=== PATIENT | female | born 1960 | race Caucasian/White ===

== ENCOUNTER → 2017-09-11 | Outpatient (CLI) | payer BC ==
[2017-09-11 11:39] LABS: Potassium 4.5 mmol/L (3.5-5.1)
[2017-09-11 11:42] LABS: Basophils # (A) 0.1 k/uL (0-0.2); Basophils % (A) 1 %; Eosinophils # (A) 0.2 k/uL (0-0.7); Eosinophils % (A) 3 %; HCT 47.2 % (34.0-46.0); HGB 14.9 gm/dL (11.4-16.0); Lymphocytes # (A) 2.1 k/uL (1.0-4.8); Lymphocytes % (A) 30 %; MCH 30.3 pg (25.0-35.0); MCHC 31.6 g/dL (31.0-37.0); MCV 95.9 fL (80.0-100.0); Mean Platelet Volume 8.3; Monocytes # (A) 0.5 k/uL (0-1.0); Monocytes % (A) 6 %; Neutrophils # (A) 4.2 k/uL (1.3-7.7); Neutrophils % (A) 59 %; Platelet Count 236 k/uL (150-450); RBC 4.92 m/uL (3.80-5.40); RDW 13.1 % (11.5-15.5); WBC 7.2 k/uL (3.8-10.6)
--- NOTE | 2017-09-11 12:00 | XR ---
EXAMINATION TYPE: XR chest 2V DATE OF EXAM: 09/11/2017 COMPARISON: NONE TECHNIQUE: PA and lateral views submitted. HISTORY: Cough FINDINGS: The lungs are clear and there is no pneumothorax, pleural effusion, or focal pneumonia. Postsurgical change left shoulder. Arthropathy of the AC joints. Surgical clips in the abdomen noted. IMPRESSION: 1. No acute process.
== END | disposition home or self-care (01) ==
LOC: LABPAT 10:40
PROVIDERS: ATTEND Orthopaedic Surgery
DX: R05 Cough (principal); M75.41 Impingement syndrome of right shoulder; Z01.812 Encounter for preprocedural laboratory examination; Z01.818 Encounter for other preprocedural examination
CPT/HCPCS: 71046; 80051; 85025; 93005

== ENCOUNTER 2017-09-29 06:23 | Day surgery (SDC) | payer BC ==
[2017-09-27 12:00] VITALS: BMI 36.0
--- NOTE | 2017-09-28 09:24 | HP ---
HISTORY AND PHYSICAL CHIEF COMPLAINT: Right shoulder pain. 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 She is having a difficult time with any attempted overhead use and significant night symptoms. She has tried medications and stretching with minimal relief. She notes she is quite limited because of this. PAST MEDICAL HISTORY: Negative. PAST SURGICAL HISTORY: Significant for left carpal tunnel surgery, cholecystectomy, previous eye surgery, bilateral knee surgery in addition to left shoulder surgery. CURRENT MEDICATIONS: Ibuprofen and tramadol. FAMILY HISTORY: Negative. SOCIAL HISTORY: Significant for tobacco use. REVIEW OF SYSTEMS: Sixteen-point review of systems otherwise reviewed and is noncontributory. PHYSICAL EXAMINATION: On examination, the patient is approximately 5 feet 7 inches, 230 pounds of endomorphic habitus. HEENT exam is nonfocal. Neck is supple. On examination of the right shoulder, she is tender about the anterior subacromial space. She has moderate subacromial crepitus. Active range of motion forward elevation 150 degrees, external rotation with arm to side 55 degrees, internal rotation to L3. Motor strength is 5 minus over 5 for abduction and external rotation. Impingement test, Neer test and Speed tests are positive. Her distal neurovascular exam appears to be intact in the right upper extremity. MRI report right shoulder 09/04/2017 shows a bicipital tendinosis in addition to possible supraspinatus partial-thickness tear. IMPRESSION: 1. Right shoulder impingement with possible partial-thickness rotator cuff tear. 2. Right shoulder bicipital tendinosis. RECOMMENDATIONS: I talked to the patient at length regarding her treatment options. At this point, she is quite symptomatic and opts to proceed with surgery. We will plan to proceed with arthroscopic evaluation with probable subacromial decompression, rotator cuff debridement versus repair and possible biceps debridement. Risks and benefits were discussed at length in layman's terms. We will likely perform that as an outpatient procedure. MMODL / IJN: [id number] /
[~2017-09-29 06:23] MED LIST: DEXAMETHASONE SOD PHOSPHATE 10 MG/ML 1 ML VIAL IV ONE; LACTATED RINGERS 1,000 ML IV SCH; LIDOCAINE 1% 20 ML VIAL (10MG/ML) FOR IV START INTRADERMA PRN; ONDANSETRON 4 MG/2 ML VIAL IVP ONE; SCOPOLAMINE 1.5MG/72HR PATCH TRANSDERM ONE; ceFAZolin IN SWFI 2 GM/20 ML SYRINGE IVP ONE; fentaNYL (PF) 50 MCG/ML 2 ML AMP IV PRN
[2017-09-29] MEDS ORDERED: FAMOTIDINE 20 MG/2 ML VIAL IVP ONE (07:18)
[2017-09-29] MEDS ORDERED: fentaNYL (PF) 50 MCG/ML 2 ML AMP IVP ONE (07:30)
[2017-09-29] MEDS ORDERED: ROPIVACAINE 5 MG/ML 30 ML VIAL MISCELLANE ONE (07:30)
[2017-09-29] MEDS ORDERED: LIDOCAINE 2%-EPI 1:200,000 20 ML VIAL SQ ONE (07:30)
[2017-09-29] MEDS ORDERED: MIDAZOLAM 2 MG/2 ML VIAL IVP ONE (07:30)
[2017-09-29] MEDS ORDERED: MIDAZOLAM 2 MG/2 ML VIAL ONE (07:59)
[2017-09-29] MEDS ORDERED: LIDOCAINE 1% INJ 10MG/ML (20 ML MDV) ONE (07:59)
[2017-09-29] MEDS ORDERED: ROPIVACAINE 5 MG/ML 30 ML VIAL ONE (07:59)
[2017-09-29] MEDS ORDERED: PROPOFOL 10 MG/ML 20 ML VIAL IV ONE (07:59)
[2017-09-29] MEDS ORDERED: SUCCINYLCHOLINE CHLORIDE 100 MG/5 ML SYR IV ONE (07:59)
[2017-09-29] MEDS ORDERED: LIDOCAINE 2%-EPI 1:100,000 20 ML VIAL ONE (07:59)
[2017-09-29] MEDS ORDERED: PHENYLEPHRINE-0.9% NACL SYG 1 MG/10 ML SYRINGE ONE (07:59)
[2017-09-29] MEDS ORDERED: fentaNYL (PF) 50 MCG/ML 2 ML AMP ONE (07:59)
[2017-09-29] MEDS ORDERED: EPINEPHrine (PF) 1 ML in SODIUM CHLORIDE 0.9% IRRIGATIO 3,000 ML IRRIGATION ONE ×6 (08:34→08:36)
[2017-09-29] MEDS ORDERED: LACTATED RINGERS 1,000 ML IV ONE ×2 (09:07→10:05)
[2017-09-29 09:32] VITALS: TEMP 97
--- NOTE | 2017-09-29 09:36 | P.OP ---
Date of Procedure: 09/29/17 Preoperative Diagnosis: Right shoulder impingement/rotator cuff tear/bicipital tendinosis Postoperative Diagnosis: 1 cm rotator cuff tear/partial thickness tear intra-articular portion long head of the biceps Procedure(s) Performed: Right shoulder arthroscopic subacromial decompression/rotator cuff repair/ biceps debridement Implants: Arthrex 5.5 mm swivel lock anchor x 1, 4.75 mm swivel lock anchor 1 Anesthesia: ANALYA, regional Surgeon: Dann De La Torre Estimated Blood Loss (ml): 10 Pathology: none sent Condition: stable Disposition: PACU Indications for Procedure: The patient's a 56-year-old female who presents with progressive right shoulder pain despite conservative measures. Clinically and by MRI she was noted evidence of a small rotator cuff tear and subacromial impingement. A discussion of the risks and benefits of continued conservative measures versus operative intervention was made with patient. She opted to proceed with surgery. Operative risks to include infection, neurovascular injury, development of blood clots, possible tendon rerupture, and possible need for subsequent procedures was discussed. Informed consent was obtained. Operative Findings: As below Description of Procedure: The patient was brought to the operating room, and after induction of general anesthesia was placed in a beachchair position. The bony prominences were appropriately padded. I examined the right shoulder. There was no gross block to passive motion. There was no gross glenohumeral instability. The right upper extremity was prepped and draped in a normal fashion. The bony outlines the acromion, distal clavicle, and coracoid process were outlined with a skin marker. The glenohumeral joint was inflated 50 mL of saline utilizing a spinal needle from posterior approach. A posterior portal was made through a 5 mm skin incision 1 cm medial and inferior to the posterior lateral border acromion. A blunt trocar was used to easily into the joint. Diagnostic arthroscopy was performed. An anterior portals made just lateral to the coracoid process entering the joint above the subscapularis tendon. The anterior labrum appeared to be intact. The subscapularis was intact. There was a partial thickness tear involving the intra-articular portion of the long head of the biceps was debrided back to stable base with a motorized shaver. The superior labrum appeared to be intact. No significant chondral injury was noted involving the humeral head and glenoid. The rotator cuff was inspected and a full-thickness tear involving the anterior aspect the supraspinatus was noted. The posterior portion the cuff appeared to be intact. The posterior labrum was intact. The inferior recess was inspected. The arthroscope was then placed into the subacromial space. A lateral portal was made through a 5 mm skin incision 2 cm inferior to the anterolateral border the acromion. The soft tissue on the undersurface of the acromion was debrided with a motorized shaver and with electrocautery clearly defining the anterior medial and lateral borders as well as the distal clavicle. An anterior inferior acromioplasty is performed with a motorized merced starting anterolateral, then extending this posteriorly, then extending this medially. I was able to convert to a flat acromion. This was verified from the posterior and lateral viewing portals. The coracoacromial ligament was detached from the anterior acromion with electrocautery. Attention was then paid towards preparing the rotator cuff. The rotator cuff tear was identified and the edges debrided back to stable base. This measured proximal 1 cm involving the anterior aspect the supraspinatus. This is easily mobilized back to the greater tuberosity. The greater tuberosity was lightly decorticated with a motorized merced down to a bleeding bony surface. An accessory superior lateral portal was made through a 4 mm skin incision just off the lateral edge of the acromion. A 4.75 mm swivel lock anchor was then placed just off the articular surface with the appropriate starting awl. Good purchase was obtained. The #2 fiber tape preloaded was then passed to the rotator cuff with a scorpion suture passer. A lateral anchor was then placed with the appropriate starting awl. This was a 5.5 mm swivel lock anchor. The sutures were appropriately tensioned. Final arthroscopic view showed adequate compression of the footprint and repair of the rotator cuff. The arthroscope was then removed. The portals were closed with simple 3-0 nylon suture. A sterile dressing was applied in addition to an abductor brace. The patient was awoken from general anesthesia and transferred to recovery room in good condition. Blood loss was estimated at 10 mL. No complications were incurred. Sponge and needle counts were correct in the case.
[2017-09-29 10:09] VITALS: RESP 18
[2017-09-29 10:41] VITALS: BP 135/70; PULSE 87
== END 2017-09-29 11:04 | disposition home or self-care (01) ==
LOC: OR 06:23
PROVIDERS: ATTEND Orthopaedic Surgery
DX: M75.101 Unspecified rotator cuff tear or rupture of right shoulder, not specified as traumatic (principal); S46.111A Strain of muscle, fascia and tendon of long head of biceps, right arm, initial encounter; X58.XXXA Exposure to other specified factors, initial encounter; M75.41 Impingement syndrome of right shoulder; E66.9 Obesity, unspecified; Z68.36 Body mass index [BMI] 36.0-36.9, adult; Z79.1 Long term (current) use of non-steroidal anti-inflammatories (NSAID); Z79.891 Long term (current) use of opiate analgesic
CPT/HCPCS: 64415; 29827; 29826; C1713 ×2; C1894; J2250; J1100; J2405; J0171; J2001; J3010; J2795; J2370; J0330; J2704; J0690

== ENCOUNTER 2018-03-19 18:01 | Emergency (ER) | payer BC ==
[2018-03-19 18:27] VITALS: RESP 16; TEMP 98
[2018-03-19] MEDS ORDERED: HYDROmorphone 0.5 MG/0.5 ML SYRINGE IVP STA (18:56)
[2018-03-19] MEDS ORDERED: DIPH,PERTUS(ACELL)TETVAC-LF 0.5 ML VIAL IM ONE (18:57)
[2018-03-19 19:03] VITALS: BP 117/56; PULSE 84
--- NOTE | 2018-03-19 19:15 | XR ---
EXAMINATION TYPE: XR foot complete RT DATE OF EXAM: 03/19/2018 COMPARISON: NONE HISTORY: Lawnmower injury. Pain. TECHNIQUE: 3 views FINDINGS: There is a comminuted fracture of the midshaft of the first metatarsal. There are fractures on the medial aspect of the IP joint of the big toe. Detail is limited by the bandages. There is a p lantar calcaneal spur. There is soft tissue calcification posterior to the calcaneus. There is 3 mm c hip fracture of the lateral aspect of the base of the proximal phalanx of the second toe. IMPRESSION: Multiple fractures. No foreign body seen at the fracture sites. Limited exam.
[2018-03-19] MEDS ORDERED: PIPERACILLIN-TAZOBACTAM 3.375 GM in DEXTROSE/WATER 1 50ML.BAG IVPB STA (19:22)
--- NOTE | 2018-03-19 19:36 | ED ---
Lower Extremity Injury HPI <BraydenShlomo - Last Filed: 03/19/18 20:18> - General Source: patient, RN notes reviewed Mode of arrival: EMS Limitations: no limitations <Sylvia Weinstein - Last Filed: 03/19/18 20:41> - General Chief Complaint: Extremity Injury, Lower Stated Complaint: foot laceration Time Seen by Provider: 03/19/18 18:57 - History of Present Illness Initial Comments: This is a 57-year-old female who presents to the emergency department with chief complaint of right foot laceration and injury. Patient reports that prior to arrival she was mowing her lawn. She states that she was backing up with her lawnmower and tripped over her neighbor's lawnmower that was sitting in their driveway. Patient states that when she tripped and fell backwards her lawnmower landed on top of her right foot. It cut through her shoe and lacerated the top of her foot and between her first and second toes. She states that she called for help but nobody hurt her. She states that she had her cell phone in her pocket so called her . EMS and fire fighters arrived and applied a dressing to patient's foot. Patient states she is not up- to-date with her tetanus vaccination. She reports normal sensation but is unable to move the great toe. Denies any allergies. Denies recent fevers or chills, chest pain or shortness of breath, abdominal pain, nausea or vomiting, dizziness or headache. (Sylvia Weinstein) - Related Data Previous Rx's Medication Instructions Recorded HYDROcodone/APAP 7.5-325MG [[place] 1 tab PO Q6HR PRN #40 09/29/17 7.5-325] Allergies Allergy/AdvReac Type Severity Reaction Status Date / Time No Known Allergies Allergy Verified 03/19/18 18:30 Review of Systems ROS Other: All systems not noted in ROS Statement are negative. <Shlomo Owen - Last Filed: 03/19/18 20:18> ROS Other: All systems not noted in ROS Statement are negative. <Sylvia Weinstein - Last Filed: 03/19/18 20:41> ROS Statement: Those systems with pertinent positive or pertinent negative responses have been documented in the HPI. Past Medical History Past Medical History: Eye Disorder Additional Past Medical History / Comment(s): glaucoma History of Any Multi-Drug Resistant Organisms: None Reported Past Surgical History: Cholecystectomy, Orthopedic Surgery, Tubal Ligation, Uterine Ablation Additional Past Surgical History / Comment(s): arthroscopic lt shoulder surgery , rt hand surgery x2 lt hand surgery x1, zandra carpal tunnel, arthroscopic rt knee x1, lt knee x2, laser surgery around eyes r/t glaucoma Past Anesthesia/Blood Transfusion Reactions: Family History of Problems w/ Anesthesia Additional Past Anesthesia/Blood Transfusion Reaction / Comment(s): PONV mother and brother Past Psychological History: No Psychological Hx Reported Smoking Status: Former smoker Past Alcohol Use History: Occasional Past Drug Use History: None Reported - Past Family History Mother Family Medical History: No Reported History <Sylvia Weinstein - Last Filed: 03/19/18 20:41> General Exam <Shlomo Owen - Last Filed: 03/19/18 20:18> Limitations: no limitations <Sylvia Weinstein - Last Filed: 03/19/18 20:41> - General Exam Comments Initial Comments: General: Awake and alert, well-developed; in no apparent distress. Patient is pleasant, calm and cooperative. She is lying comfortably on the ED stretcher. HEENT: Head atraumatic, normocephalic. Pupils are equal, round and reactive to light. Extraocular movements intact. Oropharynx moist without erythema or exudate. Neck: Supple. Normal ROM. Cardiovascular: Regular rate and rhythm. No murmurs, rubs or gallops. Chest symmetrical. Respiratory: Lungs clear to auscultation bilaterally. No wheezes, rales or rhonchi. Normal respiratory effort with no use of accessory muscles. Musculoskeletal: Patient unable to move the right great toe. Sensation is intact. There is a large laceration extending approximately 13 cm from the webbing between the great toe and second digit down to the medial aspect of the foot. An open fracture is identified. There is also a 4.0 cm laceration at the dorsal aspect of the right great toe with extensor tendon exposed. Bleeding is controlled. No evidence of arterial bleed. Pedal and posterior tibial pulses are 2+ equal and palpable bilaterally. Skin: [place], warm and dry. Neurological: Alert and oriented x3. CN II-XII grossly intact. Speech is fluent and answers are appropriate. No focal neuro deficits. Psychiatric: Normal mood and affect. No overt signs of depression or anxiety noted. (Sylvia Weinstein) Course <BraydenShlomo - Last Filed: 03/19/18 20:18> <Sylvia Weinstein - Last Filed: 03/19/18 20:41> Vital Signs 03/19/18 03/19/18 18:24 19:02 Temperature 98 F Pulse Rate 78 84 Respiratory 16 16 Rate Blood Pressure 102/55 117/56 O2 Sat by Pulse 95 98 Oximetry - Reevaluation(s) Reevaluation #1: 03/19/18 20:18 PA supervision: I personally saw and examined the patient. I reviewed and agree with the PA findings including all diagnostic interpretations treatment plans is written unless otherwise stated. I did discuss the case with Dr. Galvan from orthopedics as well as with Dr. Carlitos Cross and Dr. Shlomo Nuno orthopedics at [facility]. They've agreed to set the patient transfer. Patient did receive IV antibiotics and tetanus shot. I did discuss this with the patient and family members. They are in agreement with this. (Shlomo Owen) Medical Decision Making <BraydenShlomo - Last Filed: 03/19/18 20:18> - Radiology Data Radiology results: report reviewed, image reviewed <Sylvia Weinstein - Last Filed: 03/19/18 20:41> - Medical Decision Making This is a 57-year-old female who presents to the emergency department with chief complaint of right foot laceration and injury. Patient sustained an extensive injury to the right foot after falling backwards and having the lawnmower land on her foot. Patient reports normal sensation. She is neurovascularly intact. She is unable to move the right great toe. There is an extensive laceration measuring approximately 13 cm in length from his the webbing between great toe and second digit down to the medial aspect of the foot. There is a second laceration at the dorsal aspect of the great toe measuring approximately 4 cm in length and extensor tendon is exposed. Open fracture of the first metatarsal is noted. Bleeding is controlled. Wet-to-dry dressing was placed. Patient given pain medication and started on Zosyn. An x- ray of the right foot revealed a comminuted fracture of the midshaft of the first metatarsal, fractures on the medial aspect of the IP joint of the big toe and a 3 mm chip fracture of the lateral aspect of the base of the proximal phalanx of the second toe. Patient's pain is controlled. Her vital signs are stable and she is in no acute distress. Patient will be transferred to [facility] for trauma ortho surgery. She is accepted by Dr. Nuno, orthopedic surgeon. This is an emergency department to emergency department transfer an accepting physician at [facility] emergency Department is Dr. Urbina. Patient is in agreement for transfer. Risks and benefits were discussed. (Sylvia Weinstein) - Radiology Data X-ray right foot findings: There is a comminuted fracture of the midshaft of the first metatarsal. There are fractures on the medial aspect of the IP joint of the big toe. Detail is limited by the bandages. There is a plantar calcaneal spur. There is soft tissue calcification posterior to the calcaneus. There is 3 mm chip fracture of the lateral aspect at the base of the proximal phalanx of the second toe. Impression: Multiple fractures. No foreign body seen at the fracture sites. Limited exam. As read by Dr. Frey. (Sylvia Weinstein) Disposition <Shlomo Owen - Last Filed: 03/19/18 20:18> Is patient prescribed a controlled substance at d/c from ED?: No - Out of Hospital Transfer - Req. Specs Out of Hospital Transfer - Requested Specifics: Other Emergency Center ([facility]. Accepting physician in the emergency department is Dr. Urbina. Orthopedic surgeon Dr. Nuno) <Sylvia Weinstein - Last Filed: 03/19/18 20:41> Clinical Impression: Open fracture of right foot Disposition: OTHER INSTITUTION NOT DEFINED Condition: Good Referrals: None,Stated [Primary Care Provider] - 1-2 days
== END 2018-03-19 20:25 | disposition other institution (70) ==
LOC: EC 18:01
DX: S92.311B Displaced fracture of first metatarsal bone, right foot, initial encounter for open fracture (principal); Z23 Encounter for immunization; Z87.891 Personal history of nicotine dependence; W01.0XXA Fall on same level from slipping, tripping and stumbling without subsequent striking against object, initial encounter; Y92.009 Unspecified place in unspecified non-institutional (private) residence as the place of occurrence of the external cause
CPT/HCPCS: 73630; 90715; 99285; 96365; 96375; 90471; J2543; J1170

== ENCOUNTER → 2019-09-26 | Outpatient (CLI) | payer BC ==
--- NOTE | 2019-09-26 16:32 | ECHOF ---
Referral Reason:R00.2 palpations MEASUREMENTS -------- HEIGHT: 166.4 cm WEIGHT: 104.3 kg BP: 143/80 IVSd: 1.2 cm (0.6 - 1.1) LVIDd: 4.4 cm (3.9 - 5.3) LVPWd: 1.2 cm (0.6 - 1.1) IVSs: 1.7 cm LVIDs: 2.3 cm LVPWs: 1.6 cm LA Diam: 3.6 cm (2.7 - 3.8) RVIDd: 3.0 cm (< 3.3) LAESV Index (A-L): 20.38 ml/m Ao Diam: 2.7 cm (2.0 - 3.7) AV Cusp: 1.9 cm (1.5 - 2.6) EPSS: 1.2 cm MV E Eleno: 0.69 m/s MV DecT: 294 ms MV A Eleno: 0.83 m/s MV E/A Ratio: 0.84 MV EF SLOPE: 63.02 mm/s (70 - 150) MV EXCURSION: 15.62 mm (> 18.000) FINDINGS -------- Sinus rhythm. This was a technically adequate study. The left ventricular size is normal. There is borderline concentric left ventricular hypertrophy. Overall left ventricular systolic function is normal with, an EF between 60 - 65 %. The right ventricle is normal in size. Normal LA size by volume 22+/-6 ml/m2. The right atrium is normal in size. Interatrial and interventricular septum intact. The aortic valve is trileaflet and appears structurally normal. The mitral valve is normal. The tricuspid valve appears structurally normal. There is no pulmonic regurgitation present. The aortic root size is normal. Normal inferior vena cava with normal inspiratory collapse consistent with estimated right atrial pre ssure of 5 mmHg. There is no pericardial effusion. CONCLUSIONS -------- 1. Sinus rhythm. 2. This was a technically adequate study. 3. The left ventricular size is normal. 4. There is borderline concentric left ventricular hypertrophy. 5. Overall left ventricular systolic function is normal with, an EF between 60 - 65 %. 6. The right ventricle is normal in size. 7. Normal LA size by volume 22+/-6 ml/m2. 8. The right atrium is normal in size. 9. Interatrial and interventricular septum intact. 10. The aortic valve is trileaflet and appears structurally normal. 11. The mitral valve is normal. 12. The tricuspid valve appears structurally normal. 13. There is no pulmonic regurgitation present. 14. The aortic root size is normal. 15. Normal inferior vena cava with normal inspiratory collapse consistent with estimated right atrial pressure of 5 mmHg. 16. There is no pericardial effusion. MOTOR COACH DRIVER: Radha Cuenca RDCS
== END | disposition home or self-care (01) ==
LOC: RADECHMAIN 12:04
PROVIDERS: ATTEND Family Medicine
DX: R00.2 Palpitations (principal); I51.7 Cardiomegaly
CPT/HCPCS: 93225; 93226; 93306

== ENCOUNTER → 2019-10-07 | Outpatient (CLI) | payer BC ==
[2019-10-07 09:49] LABS: Basophils % (A) 0 %; Eosinophils # (A) 0.2 k/uL (0-0.7); Eosinophils % (A) 3 %; HGB 14.5 gm/dL (11.4-16.0); Lymphocytes # (A) 2.4 k/uL (1.0-4.8); Lymphocytes % (A) 33 %; MCH 30.5 pg (25.0-35.0); MCHC 32.3 g/dL (31.0-37.0); MCV 94.5 fL (80.0-100.0); Mean Platelet Volume 8.4; Monocytes # (A) 0.3 k/uL (0-1.0); Monocytes % (A) 5 %; Neutrophils # (A) 4.2 k/uL (1.3-7.7); Neutrophils % (A) 58 %; Platelet Count 261 k/uL (150-450); RBC 4.76 m/uL (3.80-5.40); RDW 12.9 % (11.5-15.5); WBC 7.3 k/uL (3.8-10.6)
[2019-10-07 16:06] LABS: African American GFR (CKD) 81.7 (60.0-200.0); Albumin 4.1 g/dL (3.80-4.90); Albumin/Globulin Ratio 1.86 (1.60-3.17); Anion Gap 6.5 mmol/L (4.00-12.00); Calcium 8.9 mg/dL (8.7-10.3); Carbon Dioxide 22.5 mmol/L (21.6-31.8); Chol/HDL Ratio 2.86; Globulin 2.2 g/dL (1.6-3.3); LDL Cholesterol,Calculated 78.2 mg/dL (0.0-131.0); Non-African American GFR(CKD) 70.5 (60.0-200.0); Potassium 4.4 mmol/L (3.5-5.5); Total Bilirubin 0.3 mg/dL (0.3-1.2); Total Protein 6.3 g/dL (6.2-8.2); VLDL Calculation 25.8 mg/dL (5.00-40.00)
== END ==
LOC: LABWHC1 08:57
PROVIDERS: ATTEND Family Medicine
DX: Z00.00 Encounter for general adult medical examination without abnormal findings (principal); R00.2 Palpitations
CPT/HCPCS: 36415; 80053; 80061; 84443; 85025

== ENCOUNTER → 2022-10-24 | Outpatient (CLI) | payer OTHER ==
--- NOTE | 2022-10-25 06:25 | MR ---
EXAMINATION TYPE: MR knee RT wo con DATE OF EXAM: 10/24/2022 COMPARISON: Outside right knee x-ray October 11, 2022 HISTORY: RT KNEE PAIN and swelling for a few years. History of surgery and sports injury. TECHNIQUE: Multiplanar, multisequence images of the knee is performed without IV contrast. FINDINGS: Seen slightly suboptimal secondary to patient's large body habitus MEDIAL MENISCUS: Abnormal increased signal anterior and posterior horns has definitive extension to a n inferior articular surface posterior horn. LATERAL MENISCUS: Anterior and posterior horns are intact without tear. CRUCIATE LIGAMENTS: The posterior cruciate ligament is intact and unremarkable. Complete tear of the anterior cruciate ligament with horizontal remnant ligament. COLLATERAL LIGAMENTS: The medial collateral ligament and lateral collateral ligament complex are inta ct and unremarkable. EXTENSOR MECHANISM: Visualized quadriceps and patellar tendons are intact. EFFUSION: No significant suprapatellar joint effusion. POPLITEAL CYST: No popliteal/paniagua cyst. TRICOMPARTMENT SPACES: Severe narrowing and moderate to severe spurring medial tibiofemoral compartme nt and patellofemoral compartments. 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 No full- thickness loss is seen. Significant cartilaginous loss medial tibiofemoral compartment. BONE MARROW SIGNAL: No focal abnormal marrow signal is appreciated. OTHER: No additional significant abnormality is appreciated. IMPRESSION: 1. Moderate to severe degenerative changes greatest at patellofemoral and medial tibiofemoral compart ments as detailed above. 2. Complete ACL tear presumed old without suspicious osseous edema. 3. Full-thickness tear medial meniscus through at least posterior horn likely including central body.
== END | disposition home or self-care (01) ==
LOC: RADMRIMAIN 20:01
PROVIDERS: ATTEND Orthopaedic Surgery
DX: S83.241A Other tear of medial meniscus, current injury, right knee, initial encounter (principal); M17.11 Unilateral primary osteoarthritis, right knee

== ENCOUNTER → 2022-11-14 | Outpatient (CLI) | payer OTHER ==
[2022-11-14 16:19] LABS: Basophils # (A) 0.04 X 10*3/uL (0.00-0.10); Basophils % (A) 0.5 %; Eosinophils # (A) 0.19 X 10*3/uL (0.04-0.35); Eosinophils % (A) 2.3 %; HCT 44.6 % (37.2-46.3); HGB 14.2 g/dL (12.0-15.0); Immature Grans, Automated 0.4 %; MCHC 31.8 g/dL (32.0-37.0); MCV 94.3 fL (80.0-97.0); Mean Platelet Volume 12.4 fL (9.5-12.2); Monocytes # (A) 0.65 X 10*3/uL (0.20-1.00); Monocytes % (A) 7.8 %; NRBC Per 100 WBC 0 /100 WBCS (0.0-0.0); Neutrophils # (A) 4.91 X 10*3/uL (1.80-7.70); Platelet Count 178 X 10*3/uL (140-440); RBC 4.73 X 10*6/uL (4.10-5.20); RDW 13.8 % (11.5-14.5); WBC 8.32 X 10*3/uL (4.50-10.00)
== END | disposition home or self-care (01) ==
LOC: LABWHC1 09:19
PROVIDERS: ATTEND Orthopaedic Surgery
DX: Z01.818 Encounter for other preprocedural examination (principal); M23.91 Unspecified internal derangement of right knee; I45.4 Nonspecific intraventricular block; R94.31 Abnormal electrocardiogram [ECG] [EKG]
CPT/HCPCS: 36415; 85025; 93005

== ENCOUNTER → 2022-12-29 | Outpatient (CLI) | payer OTHER ==
--- NOTE | 2022-12-29 15:40 | XR ---
EXAMINATION TYPE: XR chest 2V DATE OF EXAM: 12/29/2022 COMPARISON: 09/11/2017 TECHNIQUE: PA and lateral views submitted. HISTORY: Pain FINDINGS: The lungs are clear and there is no pneumothorax, pleural effusion, or focal pneumonia. Heart size normal and no overt failure. Osseous structures demonstrate hypertrophic and degenerative changes of the spine. Surgical changes left shoulder. Biapical pleural thickening. Surgical clips in the abdomen . IMPRESSION: 1. No acute process.
--- NOTE | 2022-12-29 15:43 | XR ---
EXAMINATION TYPE: XR knee complete LT DATE OF EXAM: 12/29/2022 COMPARISON: NONE HISTORY: Pain TECHNIQUE: Three views are submitted. FINDINGS: Diffuse osteopenia with severe arthropathy of the medial compartment and lateral compartment of the k nee joint. There is also severe narrowing and hypertrophic spurring of the patellofemoral joint. Ther e are large calcification seen in the region of the suprapatellar bursa. Diffuse osteopenia. Osseous structures are intact. No acute fracture seen. Benign-appearing sclerosis of the posterior superior margin of the head of the fibula. IMPRESSION: 1. Severe tricompartment osteoarthritis. 2. Large calcifications in the suprapatellar bursal region measuring 3.6 cm. Nonspecific etiology. Re commend MRI.
--- NOTE | 2022-12-29 15:45 | XR ---
EXAMINATION TYPE: XR wrist complete LT DATE OF EXAM: 12/29/2022 COMPARISON: NONE HISTORY: Pain TECHNIQUE: Four views submitted. FINDINGS: The osseous structures are intact. The joint spaces are preserved and there is no acute fracture or dislocation. Postsurgical change fifth digit cystic geode involving the lunate and triquetrum. IMPRESSION: 1. No definite acute finding. Postsurgical change involving the fifth digit. No definite acute fract ure.
== END | disposition home or self-care (01) ==
LOC: RADXRMAIN 14:39
PROVIDERS: ATTEND Family Medicine
DX: M17.12 Unilateral primary osteoarthritis, left knee (principal); M25.532 Pain in left wrist; M71.462 Calcium deposit in bursa, left knee; R07.9 Chest pain, unspecified; W19.XXXA Unspecified fall, initial encounter
CPT/HCPCS: 71046

== ENCOUNTER → 2023-01-04 | Outpatient (CLI) | payer OTHER ==
--- NOTE | 2023-01-05 09:12 | MR ---
EXAMINATION TYPE: MR knee LT wo con DATE OF EXAM: 01/04/2023 COMPARISON: Radiograph 12/29/2022 HISTORY: 62-year-old female M25.562 Left knee pain, injured 1 week ago. TECHNIQUE: Multiplanar, multisequence imaging of the left knee is performed without IV contrast. FINDINGS: The ACL is torn. Probably chronically torn as no pivot shift bone bruises are seen. Thickening and abnormal signal throughout the buckled PCL. Probable tear here as well. MCL is intact. Heterogeneous signal at the femoral attachment of the LCL proper. Remainder of the LCL complex appear s intact. Fluid along the popliteus tendon sheath with 9 and 8 mm loose bodies. The medial meniscus is diffusely degenerative, torn, and extruded. Moderate to severe cartilage loss throughout the medial compartment with marginal spurring and some degenerative subchondral marrow sig nal change. Complex multidirectional tear is throughout the lateral meniscus with a large horizontal cleavage tea r component in the body of the meniscus. Moderate to severe thinning of articular cartilage especiall y along the mid weightbearing and mid central aspect of the lateral compartment. Prominent marginal s purring. Moderate irregular cartilage loss along the lateral patellar and trochlear facets. Prominent marginal spurring. Extensor mechanism is intact. There is a moderate to large joint effusion. At least 3 loose bodies, 2 dominant loose bodies in the suprapatellar pouch measuring 3.1 and 2.7 cm. A third loose body in the lateral gutter measuring 8 mm . There is also some chronic synovitis with lipoma arborescens along the medial and lateral gutters. Focal marrow edema anterior aspect of the proximal tibia deep to the patellar tendon insertion. Suspe ct a large bone bruise but without discrete fracture seen. Normal popliteal artery anatomy in muscle bulk. No suspicious bone marrow replacement. IMPRESSION: 1. Torn ACL, likely chronically torn given the lack of pivot shift bone bruises. Clinically correlate . 2. Thickening and abnormal signal within the buckled PCL which is also likely torn. 3. Grade 1 sprain of the LCL proper at the femoral attachment. 4. Moderate to severe medial compartmental OA. Diffusely degenerative, torn, and extruded medial meni scus. 5. Moderate overall lateral compartmental OA but with more severe cartilage loss along the mid centra l and mid weightbearing aspect of the lateral compartment. Multidirectional tears throughout the late ral meniscus but with a large horizontal cleavage tear component. 6. Moderate to large joint effusion with multiple loose bodies. Large loose bodies in the suprapatell ar pouch measuring 3.1 cm and 2.7 cm. There is an 8 mm loose body in the lateral gutter and 2 loose b odies along the popliteus tendon sheath measuring up to 9 mm. 7. Chronic synovitis along with reactive lipoma arborescens in the medial and lateral gutters. 8. Suspect a large bone bruise along the anterior aspect of the proximal tibia deep to the patellar t endon insertion. No discrete fracture seen.
== END | disposition home or self-care (01) ==
LOC: RADMRIMAIN 07:26
PROVIDERS: ATTEND Family Medicine
DX: S83.282A Other tear of lateral meniscus, current injury, left knee, initial encounter (principal); M17.12 Unilateral primary osteoarthritis, left knee; M65.9 Synovitis and tenosynovitis, unspecified; M24.19 Other articular cartilage disorders, other specified site; M25.462 Effusion, left knee; M23.42 Loose body in knee, left knee

== ENCOUNTER → 2023-01-11 | Outpatient (CLI) | payer OTHER ==
[2023-01-11 15:48] LABS: Anion Gap 13.2 mmol/L (4.00-12.00); Carbon Dioxide 22.8 mmol/L (21.6-31.8); Potassium 4.1 mmol/L (3.5-5.5)
[2023-01-11 17:09] LABS: Basophils # (A) 0.03 X 10*3/uL (0.00-0.10); Basophils % (A) 0.4 %; Eosinophils # (A) 0.29 X 10*3/uL (0.04-0.35); Eosinophils % (A) 3.6 %; HCT 44.7 % (37.2-46.3); HGB 14.5 d/dL (12.0-15.0); Lymphocytes # (A) 2.47 X 10*3/uL (0.90-5.00); Lymphocytes % (A) 30.8 %; MCHC 32.4 d/dL (32.0-37.0); MCV 92.5 FL (80.0-97.0); Mean Platelet Volume 12.2 FL (9.5-12.2); Monocytes % (A) 7.5 %; NRBC Per 100 WBC 0 X 10*3/uL (0.00-0.01); Neutrophils # (A) 4.62 X 10*3/uL (1.80-7.70); Neutrophils % (A) 57.5 %; Platelet Count 233 X 10*3/uL (140-440); RBC 4.83 X 10*6/uL (4.10-5.20); RDW 13.3 % (11.5-14.5); WBC 8.03 X 10*3/uL (4.50-10.00)
== END | disposition home or self-care (01) ==
LOC: LABPAT 11:33
PROVIDERS: ATTEND Orthopaedic Surgery
DX: Z01.812 Encounter for preprocedural laboratory examination (principal); M23.92 Unspecified internal derangement of left knee
CPT/HCPCS: 36415; 80051; 85025

== ENCOUNTER → 2023-01-11 | Outpatient (CLI) | payer OTHER ==
--- NOTE | 2023-01-14 10:07 | MR ---
EXAMINATION TYPE: MR shoulder LT wo con DATE OF EXAM: 01/11/2023 COMPARISON: Outside left shoulder x-ray January 10, 2023 HISTORY: Left shoulder pain and limited range of motion for 2 weeks due to fall history of surgery 10 -15 years ago. TECHNIQUE: Multiplanar, multisequence imaging of the left shoulder is performed without contrast. FINDINGS: Rotator Cuff: Susceptibility Artifact from prior rotator cuff surgery at level of the humeral head. T here is partial articular surface tear involving anterior fibers of the distal supraspinatus tendon m easuring 9 mm AP diameter sagittal image 7. Infraspinatus tendon intact. Rotator cuff muscle bulk pre served. Increased signal subscapularis with surrounding fluid. Acromioclavicular Joint: Susceptibility artifact superior to the acromioclavicular joint. The acromio clavicular joint is maintained. Type III acromion noted coronal image 17. Glenohumeral Joint: Moderate size joint effusion. Labrum: The labrum appears grossly intact given limitation of non-arthrogram study. Biceps Tendon: The long head of biceps is in normal location within bicipital groove. Surrounding flu id is present. Bone marrow signal: No focal abnormal marrow signal is appreciated. Other: No additional significant abnormality is appreciated. IMPRESSION: 1. Evidence of prior rotator cuff surgical repair. There is recurrent full-thickness tear involving t he anterior 20-25% of the supraspinatus tendon. 2. Tendinosis of the subscapularis. 3. Moderate-sized glenohumeral joint effusion. 4. Bicipital tenosynovitis.
== END | disposition home or self-care (01) ==
LOC: RADMRIMAIN 10:53
PROVIDERS: ATTEND Orthopaedic Surgery
DX: S46.012A Strain of muscle(s) and tendon(s) of the rotator cuff of left shoulder, initial encounter (principal); M25.412 Effusion, left shoulder; M75.22 Bicipital tendinitis, left shoulder; M67.814 Other specified disorders of tendon, left shoulder; W19.XXXA Unspecified fall, initial encounter; X58.XXXA Exposure to other specified factors, initial encounter

== ENCOUNTER 2023-02-08 08:01 | Day surgery (SDC) | payer OTHER ==
--- NOTE | 2023-02-07 14:12 | HP ---
HISTORY AND PHYSICAL DATE OF SURGERY: 02/08/2023. HISTORY OF PRESENT ILLNESS: Jimena Willard is a 62-year-old patient seen with progressive left knee pain. We discussed options regarding treatment. She elected to proceed with left knee arthroscopy. Consent regarding the procedure obtained. PAST MEDICAL HISTORY: Gastroesophageal reflux disease. PAST SURGICAL HISTORY: Carpal tunnel surgery, cholecystectomy, shoulder arthroscopy, knee arthroscopy. DAILY MEDICATIONS: Pepcid, Aleve. ALLERGIES: None. SOCIAL HISTORY: She denies tobacco use. PHYSICAL EVALUATION OF LEFT KNEE: Range of motion is -1/2 to 110 degrees. Tenderness along the medial and lateral joint line. Positive medial Carlos's. Positive lateral Carlos's. Ligament is stable. Hip rotation without pain. Distal neurovascular exam is intact. RADIOGRAPHS: Radiographs of the left knee revealed moderate osteoarthritic changes. MRI of left knee revealed medial meniscal tear, lateral meniscal tear, osteoarthritis and multiple loose bodies. IMPRESSION: 1. Internal derangement of left knee with medial lateral meniscal tears. 2. Gastroesophageal reflux disease. PLAN: Left knee arthroscopy with partial medial/lateral meniscectomy and debridement. MMODL / IJN: [id number] /
[~2023-02-08 08:01] MED LIST changes: -DEXAMETHASONE SOD PHOSPHATE 10 MG/ML 1 ML VIAL IV ONE; +DEXAMETHASONE SOD PHOSPHATE 4 MG/ML 1 ML VIAL IV ONE; +HYDROmorphone 0.5 MG/0.5 ML SYRINGE IVP PRN; +LIDOCAINE 1% (10MG/ML) FOR IV START INTRADERMA PRN; -LIDOCAINE 1% 20 ML VIAL (10MG/ML) FOR IV START INTRADERMA PRN; +MIDAZOLAM 2 MG/2 ML VIAL IV PRN; -SCOPOLAMINE 1.5MG/72HR PATCH TRANSDERM ONE; +ceFAZolin 3 GM in SODIUM CHLORIDE 0.9% 100 ML IVPB PRN; -ceFAZolin IN SWFI 2 GM/20 ML SYRINGE IVP ONE; -fentaNYL (PF) 50 MCG/ML 2 ML AMP IV PRN
[2023-02-08] MEDS ORDERED: BUPIVACAINE (PF) 0.25% 30 ML VIAL SQ ONE ×2 (09:22→09:59)
[2023-02-08] MEDS ORDERED: MIDAZOLAM 2 MG/2 ML VIAL ONE (09:23)
[2023-02-08] MEDS ORDERED: fentaNYL (PF) 50 MCG/ML 2 ML AMP ONE (09:23)
[2023-02-08] MEDS ORDERED: KETOROLAC 15 MG/ML 1 ML VIAL ONE (09:23)
[2023-02-08] MEDS ORDERED: HYDROmorphone (PF) 1 MG/ML ONE (09:23)
[2023-02-08] MEDS ORDERED: SUCCINYLCHOLINE CHLORIDE 200 MG/10 ML VIAL IV ONE (09:23)
[2023-02-08] MEDS ORDERED: LIDOCAINE 2% INJ 20 MG/ML (2 ML VIAL) ONE (09:23)
[2023-02-08] MEDS ORDERED: PROPOFOL 10 MG/ML 20 ML VIAL IV ONE (09:23)
[2023-02-08 10:18] VITALS: TEMP 97
--- NOTE | 2023-02-08 10:19 | P.OP ---
Date of Procedure: 02/08/23 Preoperative Diagnosis: Internal derangement left knee Postoperative Diagnosis: 1. Tear medial and lateral meniscus left knee 2. Grade 4 chondromalacia medial femoral condyle left knee 3. Reactive synovitis medial, lateral and suprapatellar compartments left knee 4. Grade 4 chondromalacia femoral sulcus left knee Procedure(s) Performed: 1. Arthroscopic partial medial and lateral meniscectomy left knee 2. Arthroscopic microfracture medial femoral condyle left knee 3. Arthroscopic partial synovectomy medial, lateral and suprapatellar compartments left knee 4. Arthroscopic chondroplasty femoral sulcus left knee Anesthesia: ANALYA, local Surgeon: Viktor Hernandez Estimated Blood Loss (ml): 7 Pathology: none sent Condition: stable Disposition: PACU Indications for Procedure: 62-year-old patient seen with progressive left knee pain. After having treatment options discussed, she elected to proceed with arthroscopy. Operative Findings: See description of procedure Description of Procedure: Patient was taken to the operative suite. Patient underwent a general anesthetic by the department of anesthesia. Patient was given preoperative antibiotics. The left lower extremity was placed in a well-padded arthroscopic leg rogers. The left leg was prepped and draped in the normal sterile orthopedic fashion. A lateral parapatellar and suprapatellar incision was made. Trochars were inserted. Arthroscopy was initiated. Suprapatellar pouch revealed diffuse thick reactive synovitis. The patellofemoral joint appeared to articulate congruently. There was grade 3 chondromalacia of the patella and grade 3/4 chondromalacia of the femoral sulcus with some large osteochondral flap tears present. The scope was guided into the medial gutter. No loose bodies or plica were identified. The scope was then guided into the medial compartment. A medial parapatellar incision was made. Trocar inserted followed by probe. There was a complex tear involving the posterior horn and mid bodies of the medial meniscus. There were areas of grade 4 chondromalacia involving the tibial plateau as well as the femoral [id number] arthritis. There was thick reactive synovitis. I performed a partial medial meniscectomy getting down to stable meniscal tissue. I performed a partial synovectomy decompressing reactive synovitis. I now introduced a microfracture awl and performed a microfracture to the medial femoral condyle penetrating the bone with resultant bleeding at the microfracture site. The residual meniscus was stable. The residual osteochondral surface appeared stable. There was good decompression of the synovitis. Scope and probe were then guided into the intercondylar notch. The anterior cruciate was absent. The posterior cruciate was frayed but no gross tear.. The scope and probe were then guided into lateral compartment. There was a radial tear involving the midbody lateral meniscus. There were grade 1/2 chondromalacia changes lateral compartment with no tears. There was thick reactive synovitis anteriorly. I performed a partial lateral meniscectomy getting down to stable meniscal tissue. I performed a partial synovectomy decompressing the reactive synovitis. The residual meniscus was stable. There was good decompression of the synovitis. The scope was in guided back into the suprapatellar compartment. I introduced a motorized shaver into the suprapatellar compartment. I performed a chondroplasty of the femoral sulcus getting down to stable osteochondral tissue. I performed a partial synovectomy decompressing reactive synovitis. I noted grade 4 chondromalacia of the femoral sulcus with stable osteochondral tissue. There was good decompression of the synovitis. I now took one more look around the entire knee, no residual debris. Instruments were now removed from the joint. The joint was infiltrated with .25% Marcaine. Steri-Strips were applied to the portal sites. Sterile dressings were applied. The patient was placed into a SAMI hose. No tourniquet was utilized. The patient was awakened, transferred to a bed and taken to recovery stable satisfactory condition.
[2023-02-08 11:05] VITALS: RESP 18
[2023-02-08 11:35] VITALS: BP 127/84; PULSE 64
== END 2023-02-08 12:34 | disposition home or self-care (01) ==
LOC: OR 08:01
PROVIDERS: ATTEND Orthopaedic Surgery
DX: S83.242A Other tear of medial meniscus, current injury, left knee, initial encounter (principal); S83.282A Other tear of lateral meniscus, current injury, left knee, initial encounter; M94.262 Chondromalacia, left knee; M65.862 Other synovitis and tenosynovitis, left lower leg; K21.9 Gastro-esophageal reflux disease without esophagitis; M17.12 Unilateral primary osteoarthritis, left knee; Z90.49 Acquired absence of other specified parts of digestive tract; X58.XXXA Exposure to other specified factors, initial encounter; Z87.891 Personal history of nicotine dependence; J45.909 Unspecified asthma, uncomplicated
CPT/HCPCS: 29880; 29879; J2250; J0330; J1100; J0690; J2405; J3010; J1170 ×2; J1885; J2704; J2001

== ENCOUNTER → 2023-03-08 | Day surgery (SDC) | payer OTHER ==
[2023-02-28 16:20] VITALS: BMI 43.5
[~2023-03-08] MED LIST changes: +DEXAMETHASONE SOD PHOSPHATE 4 MG/ML 1 ML VIAL ONE; +LIDOCAINE 2% INJ 20 MG/ML (2 ML VIAL) ONE; -MIDAZOLAM 2 MG/2 ML VIAL IV PRN; +MIDAZOLAM 2 MG/2 ML VIAL IVP ONE; +PROPOFOL 10 MG/ML 20 ML VIAL IV ONE; +ROPIVACAINE 5 MG/ML 30 ML VIAL ONE; +SUCCINYLCHOLINE CHLORIDE 200 MG/10 ML VIAL IV ONE; +droPERidol 5 MG/2 ML VIAL IVP ONE
--- NOTE | 2023-03-08 07:32 | HP ---
HISTORY AND PHYSICAL DATE OF SURGERY: 03/08/2023. HISTORY OF PRESENT ILLNESS: Jimena Willard is a 62-year-old patient, seen with progressive left shoulder pain having failed conservative treatment measures. After discussing options, she elected to proceed with left shoulder arthroscopy. Consent was obtained. PAST MEDICAL HISTORY: Gastroesophageal reflux disease. PAST SURGICAL HISTORY: Knee arthroscopy, eye surgery, cholecystectomy, tubal ligation, and carpal tunnel release. DAILY MEDICATIONS: 1. Aleve. 2. Pepcid. ALLERGIES: None. SOCIAL HISTORY: She denies current tobacco use. PHYSICAL EVALUATION OF HER LEFT SHOULDER: Flexion is 120 degrees, abduction is 110 degrees, external rotation is 50 degrees with pain and weakness. Tenderness along the anterolateral acromion and rotator cuff insertion. Impingement is positive at 90 degrees. Cross-body adduction sign is positive. Drop-arm sign is positive. Distal neurovascular exam is intact. IMAGING STUDIES: Radiographs of the left shoulder revealed a type 2 anterior acromion along with acromioclavicular joint osteoarthritis. MRI left shoulder revealed a rotator cuff tendon tear, biceps tenosynovitis, and effusion. IMPRESSION: 1. Left shoulder impingement with rotator cuff tear. 2. Left shoulder biceps tenosynovitis. 3. Left shoulder acromioclavicular joint osteoarthritis. 4. Gastroesophageal reflux disease. PLAN: Left shoulder arthroscopy with subacromial decompression, arthroscopic rotator cuff repair, Jarett procedure, biceps tenodesis versus tenotomy, and debridement. MMODL / IJN: [id number] /
--- NOTE | 2023-03-08 09:26 | P.OP ---
Date of Procedure: 03/08/23 Preoperative Diagnosis: Left shoulder impingement Postoperative Diagnosis: 1. Left shoulder rotator cuff tear 2. Left shoulder impingement 3. Left shoulder grade 4 chondromalacia glenoid fossa 4. Left shoulder grade 2/3 chondromalacia humeral head 5. Left shoulder superficial superior labral tear Procedure(s) Performed: 1. Left shoulder arthroscopic rotator cuff repair 2. Left shoulder arthroscopic subacromial decompression 3. Left shoulder arthroscopic microfracture glenoid fossa 4. Left shoulder arthroscopic chondroplasty humeral head 5. Left shoulder arthroscopic debridement superficial labral tear Implants: 1Arthrex 4.75 swivel lock anchor Anesthesia: GETA, regional (Interscalene block) Surgeon: Viktor Hernandez Labor Delivery Rn #1: Mehrdad Cespedes Estimated Blood Loss (ml): 11 Pathology: none sent Condition: stable Disposition: PACU Indications for Procedure: 62-year-old patient seen with progressive left shoulder pain. After treatment options were discussed, she elected to arthroscopy. Operative Findings: See description of procedure Description of Procedure: Patient underwent an interscalene block by department of anesthesia. The patient was then taken to the operative suite. The patient underwent a general anesthetic by the department of anesthesia. The patient was placed into a lateral position and secured. There was appropriate padding of the bony prominence. Left shoulder was then prepped and draped in normal sterile orthopedic fashion. We placed the extremity in 10 pounds of longitudinal traction. A posterior incision was now made for a posterior working portal site. The trocar and cannula were inserted into the glenohumeral joint. Arthroscopy was initiated. Spinal needle was now inserted anteriorly, to ascertain the ante rior working portal site. An incision was now made in that area, a trocar was inserted followed by a probe. There were grade 2/3 chondromalacia changes diffusely about the humeral head with some large osteochondral flap tears present. There was grade 2/3 chondromalacia glenoid fossa as well but anterior and inferiorly there was an area of grade 4 chondromalacia. There was some superficial fraying of the superior labrum. Long head biceps appeared intact without significant abnormality. I performed a chondroplasty of the humeral head getting down to stable osteochondral tissue. I debrided out the superficial superior labral tear getting down to stable labral tissue. I now introduced a microfracture awl and performed a microfracture to the exposed bone area glenoid fossa which measured about 1 cm penetrating the bone with resultant bleeding at the microfracture site. I introduced a motorized shaver and debrided out some fraying around that microfracture area. The area was now pr abhishek and was found to be stable. Instruments now removed from glenohumeral joint. Utilizing the posterior working portal site, the trocar and cannula were inserted into the subacromial space. Arthroscopy initiated. I made an incision 2 fingerbreadths lateral to the acromion. I introduced my trocar followed by my ArthroCare ablator. I now began ablating thick subacromial bursal tissue, which exposed the undersurface of the anterior acromion. There was diminished subacromial space. There was a very prominent anterior acromion. A motorized bur was introduced and a subacromial decompression was performed. I also excised some osteophytes off the inferior aspect of the distal clavicle. The AC joint was visualized and noted to be moderately arthritic. I did not think enough toward a Jarett procedure. I now turned my attention to the rotator cuff tendon. A residual suture from previous surgery debrided out. There was a distal supraspinatus rotator cuff tendon tear along the anterior aspect measuring about 1.5 cm. I debrided the margins gained down to stable tendon tissue. The defect/tear again measured about 1.5 cm was freely mobile over the footprint. I abraded the footprint with a motorized bur. I passed 3 everted mattress sutures through good bites of rotator cuff tendon. I partial on the footprint area for insertion of an anchor. All 6 limbs of suture were passed through the eyelet of a Arthrex 4.75 swivel lock anchor. I now placed the eyelet into our pre-punch hole. I held it in position while Felipe BAILON tensioned all the sutures and deployed the anchor was good fixation noted.. All residual suture limbs were now clipped. We had good compression of the tendon along the entire footprint. Instruments now removed from the portal sites. All portal sites were approximated with nylon suture. Sterile dressings were applied followed by a shoulder sling. Mehrdad BAILON assisted in this complex case. The patient was awakened, transferred to a bed, and taken to recovery in stable condition.
[2023-03-08 09:28] VITALS: TEMP 97.2
[2023-03-08 10:30] VITALS: RESP 14
[2023-03-08 10:50] VITALS: BP 149/80; PULSE 68
--- NOTE | 2023-03-08 12:41 | P.ANPRN ---
Procedure Note - Anesthesia - Nerve Block Performed Left Interscalene Single Time Out Performed: Yes Date of Procedure: 03/08/23 Procedure Start Time: 06:56 Procedure Stop Time: 07:01 Location of Patient: PreOp Indication: Acute Post-Operative Pain, Requested by Surgeon Sedation Type: Sedate with meaningful contact maintained Preparation: Sterile Prep Position: Supine Needle Types: Pajunk Needle Gauge: 21 Ultrasound used to visualize needle placement: Yes Ultrasound used to observe medication spread: Yes Blood Aspirated: No Pain Paresthesia on Injection Noted: No Resistance on Injection: Normal Image Stored and Saved: Yes Events: Uneventful and Well Tolerated (Ropivacaine 0.5% 20 mL plus dexamethasone 4 mg)
== END | disposition home or self-care (01) ==
LOC: OR 06:17
PROVIDERS: ATTEND Orthopaedic Surgery
DX: M75.42 Impingement syndrome of left shoulder (principal); M75.102 Unspecified rotator cuff tear or rupture of left shoulder, not specified as traumatic; M94.212 Chondromalacia, left shoulder; S43.432A Superior glenoid labrum lesion of left shoulder, initial encounter; K21.9 Gastro-esophageal reflux disease without esophagitis; Z90.49 Acquired absence of other specified parts of digestive tract; Z98.890 Other specified postprocedural states; Z79.899 Other long term (current) drug therapy
CPT/HCPCS: 64415; 29827; 29826; 29824; C1713 ×2; J2250; J0330; J1100; J2405; J2795; J2704; J2001

== ENCOUNTER → 2023-09-18 | Outpatient (CLI) | payer OTHER ==
--- NOTE | 2023-09-18 20:19 | MR ---
EXAMINATION TYPE: MR cervical spine wo con DATE OF EXAM: 09/18/2023 COMPARISON: None HISTORY: 62-year-old female M54.2, cervicalgia, Neck pain into left arm TECHNIQUE: Multiplanar, multisequence images of the cervical spine were acquired without contrast. FINDINGS: No craniocervical junction abnormality, predental space widening, or prevertebral soft tissue swellin g. Mild degenerative disc disease particularly at C5-C7 levels with desiccated, mildly narrowed disc, an d small discussed by complex is. These impress on the ventral thecal sac but does not contribute any significant spinal canal stenosis. Scattered facet and uncovertebral joint arthropathy is present. At C3-C4, changes result in moderate left neuroforaminal stenosis. At C4-C5, changes resulting in mild left neuroforaminal stenosis. At C5-C6, changes result in moderate right neuroforaminal stenosis. At C6/C7, changes result in moderate left and mild right neuroforaminal stenosis. There is scattered Modic type II fatty endplate change particularly C5-C7 levels. Straightening of the normal cervical lordosis but with preserved alignment. Normal course, caliber, and signal intensity in the cervical spinal cord. IMPRESSION: 1. Mild to moderate multilevel spondylotic changes especially C5-C7 levels. Small disc osteophyte com plexes are present here without significant spinal canal stenosis. 2. Variable mild and moderate neuroforaminal stenoses as outlined above.
== END | disposition home or self-care (01) ==
LOC: RADMRIMAIN 13:03
PROVIDERS: ATTEND Orthopaedic Surgery
DX: M47.812 Spondylosis without myelopathy or radiculopathy, cervical region (principal); M99.71 Connective tissue and disc stenosis of intervertebral foramina of cervical region; M25.78 Osteophyte, vertebrae
CPT/HCPCS: 72141

== ENCOUNTER → 2023-11-06 | Outpatient (CLI) | payer OTHER ==
--- NOTE | 2023-11-06 08:32 | P.PAINCN ---
History of Present Illness - Reason for Consult Consult date: 11/06/23 neck pain - Chief Complaint left-sided neck pain - History of Present Illness is a 62 year old pleasant female patient came to [facility] pain management clinic for initial evaluation for left-sided neck pain. Patient described pain started more than 10 years ago. Sometimes her neck pain radiates towards the left shoulder area. Patient described pain as aching, sharp, throbbing, numbness tingling sensation in her fourth and fifth fingers up to the elbow area .. Patient rated pain 5 out of 10 in severity. Which may very her pain level from 4-8 out of 10 in severity. Pain increases with activities, turning, twisting. Pain decreases with resting and Flexeril, Celebrex. Overall patient activities decreased secondary to pain. Pain medications helping to rona e extent. Because of the pain patient is feeling lack of sleep and interest and energy. Denied any bowel or bladder problems. Patient denies any adverse effects to medications. not using anywalking aids for walking. Complaining depression secondary to pain but denied any suicidal/homicidal tendency at this time. Sleep pattern -good. There are no signs of narcotic diversion/misuse/overuse and no new-onset weakness, bowel/bladder incontinence, saddle anesthesia, or no red flag symptoms. Conservative treatment tried: Bzpr-yqr-sdihiwn medications-Motrin Jlnc-zey-usuggjb lidocaine patch-tried Ice, and heat-helpful Physical therapy exercises, exercises at home as tolerated, he tried neck exercises, and physical therapy for 6 weeks duration not much helpful TENS unit's- never tried Chiropractic therapy- never tried, massage therapy never tried Review of Systems 13 point review of symptoms reviewed except as mentioned in the history of present illness. Past Medical History Past Medical History: Eye Disorder, Osteoarthritis (OA) Additional Past Medical History / Comment(s): glaucoma History of Any Multi-Drug Resistant Organisms: None Reported Past Surgical History: Cholecystectomy, Orthopedic Surgery, Tubal Ligation, Uterine Ablation Additional Past Surgical History / Comment(s): arthroscopic lt shoulder surgery, rt hand surgery x2 lt hand surgery x1, zandra carpal tunnel, arthroscopic rt knee x1, lt knee x2, laser surgery around eyes r/t glaucoma Past Anesthesia/Blood Transfusion Reactions: Family History of Problems w/ Anesthesia Additional Past Anesthesia/Blood Transfusion Reaction / Comm: PONV mother and brother Past Psychological History: No Psychological Hx Reported Smoking Status: Former smoker Past Alcohol Use History: Occasional Additional Past Alcohol Use History / Comment(s): smoked on and off 4-5 cigarettes/day quit smoking 1 week ago Past Drug Use History: None Reported - Past Family History Mother Family Medical History: No Reported History Father Family Medical History: Diabetes Mellitus Medications and Allergies Home Medications Medication Instructions Recorded Confirmed Type Albuterol Sulfate [Ventolin HFA] 2 puff INHALATION DIRECTED PRN 11/28/22 03/08/23 History Famotidine [Pepcid] 20 mg PO DAILY PRN 11/28/22 03/08/23 History HYDROcodone/APAP 7.5-325MG [[place] 1 each PO Q6HR PRN #28 tab 03/08/23 Rx 7.5] Allergies Allergy/AdvReac Type Severity Reaction Status Date / Time No Known Allergies Allergy Verified 03/08/23 06:29 Physical Exam Vitals: Vital Signs Temp Pulse Resp BP Pulse Ox 11/06/23 08:03 98.2 F 76 15 165/115 98 Intake and Output 11/05/23 11/06/23 11/06/23 22:59 06:59 14:59 Other: Weight 117.934 kg General: Well-developed, well-nourished, no acute distress HEENT: Normocephalic, and atraumatic Neck: Supple, no neck swelling Psychiatric: Appropriate mood, and affect PRINT COLOR OPERATOR: No focal neurological deficits Musculoskeletal: Upper extremity: Normal strength, and range of motion. Sensation grossly intact. Tinel sign positive over the ulnar distribution. Lower extremity: Normal strength, and decreased range of motion secondary to p ain Cervical spine: Paravertebral tenderness: Positive, and multiple trigger points over left side trapezius muscle. Cervical spine facet marilia: Positive Cervical spine Spurling test:negative Results Comments: MRI of the cervical spine reviewed showed multiple level degenerative disc disease with no significant neural foramina stenosis or disc herniations Assessment and Plan Assessment: cervical myofascial pain syndrome Cervical spondylosis without myelopathy Chronic pain syndrome Plan: #1 Diagnoses, prognosis, and multiple treatment options including but not limited to physical therapy, interventional therapy, adjunct medication therapy, narcotic medication, and surgical options were discussed with the patient. And all questions were answered to the patient's satisfaction. #2 treatment plan agreement : Patient was thoroughly discussed regarding the treatment options, alternatives, and importance of exercises as tolerated. Patient clearly understood. #3 Patient was counseled on importance of regular exercise. Including radha chi, aerobic exercises as tolerated. Which helps for chronic pain, and overall well- being. Patient also counseled regarding importance of weight control rolling chronic pain, and overall other health issues. By altering diet habits, minimizing sugar intake, and processed foods helps in minimizing Inflammation. Also discussed with the patient regarding intermittent fasting. #4 investigations: MAPS- reviewed , urine drug test- not done #5 diagnostic tests: none #6 consultation : continue physical therapy exercises at home. # 7 interventional procedures: left cervical, and upper thoracic trapezius muscle trigger point as needed . Procedure, complications, alternatives discussed with the patient. #8 medications #1Flexeril 10 mg by mouth every 12 to every 8 hours as needed for muscle spasms from primary care physician #2Celebrex 100 mg by mouth every 12 hours as needed from primary care physician # Bengay a topical cream as neededover the affected area 3 times a day Medication side effects, complications, long-term consequences discussed with the patient. Patient recommended to contact the pain clinic if noticed any issues with given medications. #9 morphine milligrams equivalents dose ( MME) per day: 0 from the pain clinic # 10 TENS unit's, and percussion massage device #11 disposition: scheduled to follow up with pain clinic in 6-8 weeks duration. Time with Patient: Greater than 30 PQRS Measure Charge Sheet Measure #130: Documentation of Current Meds in Medical Chart: Patient's medications documented in chart Measure #226: Tobacco Use: Screen & Cessation Intervention: Pt not a tobacco user (smoking the patient currently not right) Measure #111: Pneumonia Vaccination: Pneumococcal vaccine NOT administered or previously given (. I saw that radiate is documented) Measure #47: Advance Care Plan: Advance care planning discussed & documented, plan or surrogate given Measure #412: Opioid Treatment Agreement: No documentation of signed opioid treatment agreement Measure #408: Opioid Therapy Follow-up Evaluation: Patient had f/u eval minimum every 3 months during opioid therapy Measure #317: Preventitive Care & Scrn High Bld Press & F/U: Normal blood pressure, f/u not required Measure #128: Body Mass Index (BMI) Screening & Follow-up: BMI documented ABOVE normal parameters - f/u documented Measure #131: Pain Assessment & Follow-up: Pain positive & plan documented Measure #431: Unhealthy Alcohol Use Preventative Care & Scrn: Patient not identified as an unhealthy alcohol user Mode of Arrival: Ambulatory - Pain Location Left Neck Non-Pharmacological Interventions: Heat, Inactivity, Position/Reposition Pharmacological Interventions: Scheduled Medication PQRS Narrative: Smoking Status Former smoker Blood Pressure 165/115 Pain Intensity [Left Neck] 5 Scale Used Numeric (1 - 10) Hx Alcohol Use (MH) No Home Medications: Ambulatory Orders Albuterol Sulfate [Ventolin HFA] 2 puff INHALATION DIRECTED PRN 11/28/22 Famotidine [Pepcid] 20 mg PO DAILY PRN 11/28/22 HYDROcodone/APAP 7.5-325MG [Otis 7.5] 1 each PO Q6HR PRN #28 tab 03/08/23
[2023-11-06 08:44] VITALS: BP 165/115; PULSE 76; RESP 15; TEMP 98.2
== END ==
LOC: PNWHC3 07:51
PROVIDERS: ATTEND Anesthesiology
DX: M47.22 Other spondylosis with radiculopathy, cervical region (principal); M48.02 Spinal stenosis, cervical region; M79.18 Myalgia, other site; G89.4 Chronic pain syndrome; Z87.891 Personal history of nicotine dependence; Z98.51 Tubal ligation status
CPT/HCPCS: 99211

== ENCOUNTER 2024-02-14 10:42 | Day surgery (SDC) | payer OTHER ==
--- NOTE | 2024-02-13 13:59 | P.HPOR ---
History of Present Illness H&P Date: 02/13/24 Subjective: This is a 63 year old female that presents today for initial evaluation regarding a several year history of progressively worsening right hand paresthesias involving the entire hand. She has a history of bilateral carpal tunnel release surgery that was performed 15 years ago. She states after the surgery she responded very well and had resolution of her numbness and tingling however and her numbness has been progressively worsening over the last year or so. She also noticed radiating numbness and tingling from the elbow down to the small and ring finger and has sensitivity around the medial elbow. She also has a history of a right fifth metacarpal neck fracture that was treated with plate and screw fixation over 10 years ago. She states since then she has had pain and swelling over the area of the plate which has limimited her ability to move the small finger and has caused persistent swelling. Physical Examination: RUE: AIN/PIN/Radial/Ulnar/Median motor intact. Radial/Ulnar/Median SILT. 2+/4 Radial/Ulnar pulses palpated. 5/5 APB, 5/5 FDI. Negative Finkelsteins, negative CMC grind, positive Durkan's compression. Evidence of prior carpal tunnel release. Numbness in small and ring fingers after 10 seconds of elbow flexion. Post surgical scar present around dorsum of the small finger with prominent swelling and palpable screws underneath the skin. Unable to make a full fist. Imaging: X-rays of the right elbow three view taken in office today demonstrate no abnormality. X-rays of the left elbow three view taken in office today demonstrate no abnormality. X-rays of the right hand taken from previous office visit demonstrate plate and screw fixation of a metacarpal neck fracture with screw back out. Impression: 1.) Right carpal tunnel syndrome 2.) Right cubital tunnel syndrome 3.) Right hand irritating hardware Plan: Diagnosis and treatment options were discussed with the patient. The patient has failed conservative treatment and would like to pursue a revision open carpal tunnel release, open cubital tunnel release and right hand removal of hardware. Risks and benefits of surgery including bleeding, infection, damage to caterina rounding tissue, need for further surgery, possible need to convert to open procedure, residual numbness were discussed and the patient wished to go forward with surgery. -Rob Rosado DO Orthopedic Hand/Upper Extremity Surgeon Past Medical History Past Medical History: Eye Disorder, GERD/Reflux, Hypertension, Osteoarthritis (OA) Additional Past Medical History / Comment(s): glaucoma History of Any Multi-Drug Resistant Organisms: None Reported Past Surgical History: Cholecystectomy, Orthopedic Surgery, Tubal Ligation, Uterine Ablation Additional Past Surgical History / Comment(s): arthroscopic lt shoulder surgery, rt hand surgery x2 lt hand surgery x1, zandra carpal tunnel, arthroscopic rt knee x1, lt knee x2, laser surgery around eyes r/t glaucoma, reattchment of partial amp to rt foot Past Anesthesia/Blood Transfusion Reactions: Family History of Problems w/ Anesthesia Additional Past Anesthesia/Blood Transfusion Reaction / Comment(s): PONV mother and brother Smoking Status: Former smoker - Past Family History Mother Family Medical History: No Reported History Father Family Medical History: Diabetes Mellitus Medications and Allergies Home Medications Medication Instructions Recorded Confirmed Type Albuterol Sulfate [Ventolin HFA] 2 puff INHALATION DIRECTED PRN 11/28/22 02/09/24 History Famotidine [Pepcid] 20 mg PO DAILY PRN 11/28/22 02/09/24 History HYDROcodone/APAP 7.5-325MG [[place] 1 each PO Q6HR PRN #28 tab 03/08/23 02/09/24 Rx 7.5] lisinopriL [Zestril] 5 mg PO DAILY 02/09/24 02/09/24 History Allergies Allergy/AdvReac Type Severity Reaction Status Date / Time No Known Allergies Allergy Verified 02/09/24 10:43 Physical Examination Osteopathic Statement: *. No significant issues noted on an osteopathic structu ral exam other than those noted in the History and Physical/Consult.
[~2024-02-14 10:42] MED LIST changes: -DEXAMETHASONE SOD PHOSPHATE 4 MG/ML 1 ML VIAL IV ONE; -DEXAMETHASONE SOD PHOSPHATE 4 MG/ML 1 ML VIAL ONE; -HYDROmorphone 0.5 MG/0.5 ML SYRINGE IVP PRN; -LACTATED RINGERS 1,000 ML IV SCH; -LIDOCAINE 1% (10MG/ML) FOR IV START INTRADERMA PRN; -LIDOCAINE 2% INJ 20 MG/ML (2 ML VIAL) ONE; -MIDAZOLAM 2 MG/2 ML VIAL IVP ONE; -PROPOFOL 10 MG/ML 20 ML VIAL IV ONE; -ROPIVACAINE 5 MG/ML 30 ML VIAL ONE; -SUCCINYLCHOLINE CHLORIDE 200 MG/10 ML VIAL IV ONE; -ceFAZolin 3 GM in SODIUM CHLORIDE 0.9% 100 ML IVPB PRN; -droPERidol 5 MG/2 ML VIAL IVP ONE; +fentaNYL (PF) 50 MCG/ML 2 ML AMP IV PRN
[2024-02-14 10:58] VITALS: TEMP 98.5
[2024-02-14] MEDS: IV FLUID CONTINUATION 1,000 ML IV ONE ×2 (11:03→14:28)
[2024-02-14] MEDS: DEXAMETHASONE SOD PHOSPHATE 4 MG/ML 1 ML VIAL IV ONE (11:10)
[2024-02-14] MEDS: ONDANSETRON 4 MG/2 ML VIAL IVP ONE (11:10)
[2024-02-14] MEDS: LACTATED RINGERS 1,000 ML IV SCH (11:10)
[2024-02-14] MEDS: FAMOTIDINE 20 MG/2 ML VIAL IV STA (11:11)
[2024-02-14] MEDS ORDERED: MIDAZOLAM 2 MG/2 ML VIAL ONE (11:35)
[2024-02-14] MEDS ORDERED: PHENYLEPHRINE 10 MG/ML VIAL ONE (11:35)
[2024-02-14] MEDS ORDERED: fentaNYL (PF) 50 MCG/ML 2 ML AMP ONE (11:35)
[2024-02-14] MEDS ORDERED: PROPOFOL 10 MG/ML 20 ML VIAL IV ONE (11:35)
[2024-02-14] MEDS ORDERED: LIDOCAINE 1% INJ 10MG/ML (20 ML MDV) ONE (11:35)
[2024-02-14] MEDS: ceFAZolin 3 GM in SODIUM CHLORIDE 0.9% 100 ML IVPB PRN (11:40)
[2024-02-14] MEDS: BUPIVACAINE (PF) 0.5% 30 ML VIAL SQ ONE ×2 (11:58→13:18)
[2024-02-14] MEDS: HYDROmorphone 0.5 MG/0.5 ML SYRINGE IVP PRN (13:55)
[2024-02-14 15:11] VITALS: PULSE 67
[2024-02-14 15:27] VITALS: BP 130/76; RESP 14
--- NOTE | 2024-02-14 20:23 | P.OP ---
Date of Procedure: 02/14/24 Preoperative Diagnosis: 1.) Right recurrent carpal tunnel syndrome 2.) Right cubital tunnel syndrome 3.) Right hand irritable orthopedic implant Postoperative Diagnosis: 1.) Right recurrent carpal tunnel syndrome 2.) Right cubital tunnel syndrome 3.) Right hand irritable orthopedic implant Procedure(s) Performed: 1.) Right revision open carpal tunnel release 2.) Right open cubital tunnel release, in situ 3.) Right hand removal of deep orthopedic implant Anesthesia: GETA Surgeon: Rob Rosado Candle Wrapper #1: Dequan Clark Estimated Blood Loss (ml): 0 Pathology: none sent Condition: stable Disposition: PACU Description of Procedure: This is a 63 year old female who presented today for a right revision open carpal tunnel release and open cubital tunnel release and right hand removal of deep orthopedic implant after having failed conservative treatment. Risks and benefits of surgery were discussed with the patient including bleeding, damage to surrounding tissue, infection, need for further surgery as well as risks of anesthesia including pulmonary embolism and even and the patient wished to proceed with surgical intervention. The patient was seen in the pre-operative area by myself. Consent and H&P were completed and updated. The correct extremity was marked in the pre-operative area by myself and all other questions were answered. Operative Narrative: The patient was brought to the operating room by the department of anesthesia. They remained on the portable stretcher and a rolling hand table was brought to the side of the operative extremity. Pre-operative time out was performed indicating the correct patient, procedure and laterality. All in the room agreed. Pre-operative antibiotics were given prior to skin incision. The patient was then drifted off to sleep by the department of anesthesia. A nonsterile tourniquet was then applied to the operative extremity and the right upper extremity was then prepped and draped in normal sterile fashion. The operative extremity was the exsanguinated with an esmarch bandage and the tourniquet was inflated to 250mmHg. 15 blade scalpel was utilized to make a longitudinal incision on the palmar skin in line with the radial boarder of the ring finger to a point distally at the intersection of Kaplans cardinal line overlying the patient previous carpal tunnel incision. Josee retractor was utilized to spread subcutaneous tissue and scalpel was used to cut through the superficial palmar fascia to reveal the transverse carpal ligament. The transverse carpal ligament was then sharply incised in line with the incision and tenotomy scissors were used to spread distally and the distal portion of the transverse carpal ligament was released along it's ulnar boarder using tenotomy scissors from distal to proximal under direct visualization. The median nerve was directly visualized and was intact and scarred to the undersurface of the ligament radially, a limited neurolysis of adhesion to the median nerve was performed to free it from the previously released transverse carpal ligament. Proximal fascia of the distal forearm was also released under direct visualization taking care to preserve the palmar cutaneous branch of the median nerve. The wound was then closed with 4-0 nylon suture in a horizontal mattress fashion. Attention was brought to the medial elbow. 15 blade scalpel was used to incise skin in between the medial epicondyle and olecranon in a curvlinear and longitudinal fashion. Blunt dissection was taken down through subcutaneous tissue with tenotomy scissors and branches of the MABCN were identified and protected. Dissection was carried proximally and the ulnar nerve was identified and released from it's surrounding soft tissue attachments proximal to hubbard's ligament, the nerve did not appear to be compressed at this location. Dissection was then carried distally and the patient was found to have a robus anconeus epitrochlearis muscle, this was carefully dissected off of the ulnar nerve and then hubbard's ligament was identified and released at the medial epicondyle, the nerve appeared compressed at this location. Dissection was then carried out further distal and the fascia of the two heads of the FCU were incised and the ulnar nerve was decompressed with [place] and tenotomy scissors and appeared to be tension free. The elbow was the flexed and extended and the ulnar nerve appeared to be stable in a tension free manner. 20cc's 0.5% bupivacaine was injected into the subcutaneous tissues. Skin closure was performed with interrupted 3-0 Monocryl sutures followed by running 4-0 Monocryl sutures. Attention was then drawn to the dorsal aspect of the right hand overlying the fifth metacarpal region. A 15 blade scalpel was utilized to make a longitudinal incision over the area of maximum prominence near the patient's prominent hardware. Blunt dissection was taken down through subcutaneous tissues with tenotomy scissors. The interval between the EDM and EDC tendon to the small finger was entered which unvailed the plate and screws. The distal two screws of the mini fragment straight plate were nearly completely backed out and were easily removed manually. There were two well fixed proximal screws through the plate that were easily able to be removed. A freer elevator was then used to remove the plate from the bone in an atraumatic fashion. There was one additional screw freely placed in the bone that was also able to be successfully removed. The hand and finger was then ranged and the bone appeared to be stable and the extensor tendons free of their adhesions. X-ray confirmed complete removal of hardware with no evidence of fracture. The wound was then closed with 4-0 nylon suture in a horizontal mattress fashion. A large bulky soft dressing was in applied consisting of Adaptic, 4x4's, cast padding and an rick wrap. The tourniquet was then let down and the hand had immediate perfusion. The patient was then woken by the department of anesthesia and transferred to PACU in stable condition. Dequan BAILON was present to assist in retraction, protection of nerves and assistance in dressing application. Rob Rosado D.O. Orthopedic Hand/Upper Extremity Surgeon
== END 2024-02-14 15:41 | disposition home or self-care (01) ==
LOC: OR 10:42
PROVIDERS: ATTEND Orthopaedic Surgery Hand Surgery
DX: T84.89XA Other specified complication of internal orthopedic prosthetic devices, implants and grafts, initial encounter (principal); G56.01 Carpal tunnel syndrome, right upper limb; G56.21 Lesion of ulnar nerve, right upper limb; I10 Essential (primary) hypertension; Z79.899 Other long term (current) drug therapy; K21.9 Gastro-esophageal reflux disease without esophagitis; J45.909 Unspecified asthma, uncomplicated; M19.90 Unspecified osteoarthritis, unspecified site; Z87.891 Personal history of nicotine dependence; Y83.8 Other surgical procedures as the cause of abnormal reaction of the patient, or of later complication, without mention of misadventure at the time of the procedure
CPT/HCPCS: 64718; 64721; 20680; J2250; J1100; J0690; J2405; J2001; J3010; J3490; J2704; J1170; J2371; J0665

== ENCOUNTER → 2024-08-09 | Outpatient (CLI) | payer OTHER | END | disposition home or self-care (01) | LOC: LABPAT 11:56 | PROVIDERS: ATTEND Orthopaedic Surgery | DX: Z22.322 Carrier or suspected carrier of Methicillin resistant Staphylococcus aureus (principal); M19.012 Primary osteoarthritis, left shoulder | CPT/HCPCS: 87070 ==

== ENCOUNTER → 2024-08-14 | Outpatient (CLI) | payer OTHER ==
[2024-08-14 15:49] LABS: INR 0.97 sec (0.93-1.11); Prothrombin Time 10.9 sec (9.9-11.9)
[2024-08-14 16:53] LABS: BUN/Creat Ratio 16.44 Ratio (12.00-20.00); Blood Urea Nitrogen 14.8 mg/dL (9.0-27.0); Calcium 9.4 mg/dL (8.7-10.3); Carbon Dioxide 21.3 mmol/L (21.6-31.8); Chloride 107 mmol/L (96-109); Glucose 113 mg/dL (70-110); Potassium 4.3 mmol/L (3.5-5.5); Sodium 140 mmol/L (135-145)
[2024-08-14 17:10] LABS: Basophils # (A) 0.04 X 10*3/uL (0.00-0.10); Basophils % (A) 0.6 %; Eosinophils # (A) 0.18 X 10*3/uL (0.04-0.35); Eosinophils % (A) 2.5 %; HCT 45.5 % (37.2-46.3); HGB 14.7 g/dL (12.0-15.0); Lymphocytes # (A) 1.88 X 10*3/uL (0.90-5.00); Lymphocytes % (A) 26.1 %; MCH 30.4 pg (27.0-32.0); MCHC 32.3 g/dL (32.0-37.0); MCV 94.2 FL (80.0-97.0); Mean Platelet Volume 12.9 FL (9.5-12.2); Monocytes # (A) 0.58 X 10*3/uL (0.20-1.00); NRBC Per 100 WBC 0 X 10*3/uL (0.00-0.01); Neutrophils # (A) 4.49 X 10*3/uL (1.80-7.70); Neutrophils % (A) 62.2 %; Platelet Count 207 X 10*3/uL (140-440); RBC 4.83 X 10*6/uL (4.10-5.20); RDW 13.8 % (11.5-14.5); WBC 7.21 X 10*3/uL (4.50-10.00)
== END | disposition home or self-care (01) ==
LOC: LABPAT 08:49
PROVIDERS: ATTEND Orthopaedic Surgery
DX: Z01.812 Encounter for preprocedural laboratory examination (principal); M19.012 Primary osteoarthritis, left shoulder
CPT/HCPCS: 80048; 85025; 85610

== ENCOUNTER 2024-08-20 10:40 | Day surgery (SDC) | payer OTHER ==
--- NOTE | 2024-08-19 09:06 | P.HPOR ---
History of Present Illness H&P Date: 08/19/24 Chief Complaint: Left shoulder pain The patient is a 63-year-old female who presents with progressive left shoulder pain for the past year. She is having pain with any attempted overhead use and at night. She had a previous arthroscopy in . She has had worsening symptoms since. She has tried medications along with therapy and previous injections without much relief. Review of Systems Per HPI Past Medical History Past Medical History: Asthma, Eye Disorder, GERD/Reflux, Hypertension, Osteoarthritis (OA) Additional Past Medical History / Comment(s): glaucoma History of Any Multi-Drug Resistant Organisms: None Reported Past Surgical History: Cholecystectomy, Orthopedic Surgery, Tubal Ligation, Uterine Ablation Additional Past Surgical History / Comment(s): arthroscopic lt shoulder surgery, rt hand surgery x2 lt hand surgery x1, zandra carpal tunnel, arthroscopic rt knee x1, lt knee x2, laser surgery around eyes r/t glaucoma Past Anesthesia/Blood Transfusion Reactions: Family History of Problems w/ Anesthesia Additional Past Anesthesia/Blood Transfusion Reaction / Comment(s): PONV mother and brother Smoking Status: Former smoker - Past Family History Mother Family Medical History: No Reported History Father Family Medical History: Diabetes Mellitus Medications and Allergies Home Medications Medication Instructions Recorded Confirmed Type Albuterol Sulfate [Ventolin HFA] 2 puff INHALATION DIRECTED PRN 11/28/22 08/15/24 History lisinopriL [Zestril] 5 mg PO DAILY 02/09/24 08/15/24 History Allergies Allergy/AdvReac Type Severity Reaction Status Date / Time No Known Allergies Allergy Verified 08/15/24 14:30 Physical Examination - Shoulder left Effusion grade: grade 1 Tenderness with palpation: anterior, bicipital groove Pain: with abduction, with forward flexion ROM: forward flexion: 120 degrees ROM: internal rotation: lower lumbar ROM: external rotation: 60 degrees Crepitus with motion: Yes Strength: abduction: 5/5 Strength: external rotation: 5/5 Tests: internal impingement tests: positive, external impingment tests: positive Results The patient is a well-developed well-nourished female approximately 5 foot 7, 270 pounds of endomorphic habitus. HEENT exam is nonfocal, neck ROM is limited. She is tender about the left anterior glenohumeral joint. Moderate crepitus is noted. Lockhart, Neer sign, and Speed test are positive. Her distal neurovascular exam appears intact in the left upper extremity. - Diagnostic results Shoulder x-ray: image reviewed (X-rays of the left shoulder obtained the office show moderate to severe glenohumeral joint space narrowing with [id number] changes. Cystic appearance of the greater tuberosity is noted with a metallic anchor.) Assessment and Plan Assessment: Left severe glenohumeral joint osteoarthrosis History of cervical radiculopathy Obesity Plan: I talked to the patient at length regarding her condition along with treatment options. At this point she is quite symptomatic having pain related to her left shoulder osteoarthrosis despite conservative measures. After a thorough discussion she opts to proceed with surgery. We will plan to proceed with left total shoulder arthroplasty. Risks and benefits were discussed at length in layman's terms. We will likely keep the patient for 23-hour hold postoperatively.
[~2024-08-20 10:40] MED LIST changes: +HYDROmorphone 0.5 MG/0.5 ML SYRINGE IVP PRN; +LIDOCAINE 1% (10MG/ML) FOR IV START INTRADERMA PRN; -ONDANSETRON 4 MG/2 ML VIAL IVP ONE; +TRANEXAMIC 1,000 MG/100ML-NACL 1,000 MG in SALINE 1 100ML.BAG IVPB PRN; +droPERidol 5 MG/2 ML VIAL IVP PRN; -fentaNYL (PF) 50 MCG/ML 2 ML AMP IV PRN
[2024-08-20] MEDS: IV FLUID CONTINUATION 1,000 ML IV ONE ×5 (11:45→16:10)
[2024-08-20] MEDS: LACTATED RINGERS 1,000 ML IV SCH (11:45)
[2024-08-20] MEDS: MELOXICAM 7.5 MG TAB PO PRN (11:47)
[2024-08-20] MEDS: ACETAMINOPHEN TAB 500 MG TAB PO PRN (11:47)
[2024-08-20] MEDS: ONDANSETRON 4 MG/2 ML VIAL IVP ONE (11:50)
[2024-08-20] MEDS: DEXAMETHASONE SOD PHOSPHATE 4 MG/ML 1 ML VIAL IV ONE (11:50)
[2024-08-20] MEDS: MIDAZOLAM 2 MG/2 ML VIAL IV ONE (11:52)
[2024-08-20] MEDS: fentaNYL (PF) 50 MCG/ML 2 ML AMP IVP PRN (11:52)
--- NOTE | 2024-08-20 12:00 | P.ANPRN ---
Procedure Note - Anesthesia - Nerve Block Performed Left Interscalene Single Time Out Performed: Yes Date of Procedure: 08/20/24 Procedure Start Time: 11:51 Procedure Stop Time: 11:58 Location of Patient: PreOp Indication: Acute Post-Operative Pain, Requested by Surgeon Sedation Type: Sedate with meaningful contact maintained Preparation: Sterile Prep Position: Supine Needle Types: Pajunk Needle Gauge: 21 Ultrasound used to visualize needle placement: Yes Ultrasound used to observe medication spread: Yes Injectate: 0.5% Ropivacaine (see comment for volume) (30 ml + 4 mg De xamethasone) Blood Aspirated: No Pain Paresthesia on Injection Noted: No Resistance on Injection: Normal Image Stored and Saved: Yes Events: Uneventful and Well Tolerated
[2024-08-20] MEDS ORDERED: SUCCINYLCHOLINE CHLORIDE 200 MG/10 ML VIAL IV ONE (12:14)
[2024-08-20] MEDS ORDERED: ROCURONIUM 10 MG/ML (5 ML VIAL) IV ONE (12:14)
[2024-08-20] MEDS ORDERED: NEOSTIGMINE 1 MG/ML 10 ML VIAL ONE (12:14)
[2024-08-20] MEDS ORDERED: ePHEDrine 50 MG/ML 1 ML VIAL ONE (12:14)
[2024-08-20] MEDS ORDERED: GLYCOPYRROLATE 0.2 MG/ML 2 ML VIAL ONE (12:14)
[2024-08-20] MEDS ORDERED: fentaNYL (PF) 50 MCG/ML 2 ML AMP ONE (12:14)
[2024-08-20] MEDS ORDERED: DEXAMETHASONE SOD PHOSPHATE 4 MG/ML 1 ML VIAL ONE (12:14)
[2024-08-20] MEDS ORDERED: LIDOCAINE 1% INJ 10MG/ML (20 ML MDV) ONE (12:14)
[2024-08-20] MEDS ORDERED: PROPOFOL 10 MG/ML 20 ML VIAL IV ONE (12:14)
[2024-08-20] MEDS ORDERED: PHENYLEPHRINE 10 MG/ML VIAL ONE (12:14)
[2024-08-20] MEDS ORDERED: ROPIVACAINE 5 MG/ML 30 ML VIAL ONE (12:14)
[2024-08-20] MEDS ORDERED: TRANEXAMIC 1,000 MG/100ML-NACL PREMIX BAG ONE (12:14)
[2024-08-20] MEDS: ceFAZolin 3 GM in SODIUM CHLORIDE 0.9% 100 ML IVPB PRN (12:19)
[2024-08-20] MEDS: ceFAZolin 2,000 MG in SODIUM CHLORIDE 0.9% 1,000 ML IRRIGATION ONE (12:50)
[2024-08-20] MEDS ORDERED: HYDROmorphone 0.5 MG/0.5 ML SYRINGE IVP PRN (14:29)
[2024-08-20] MEDS ORDERED: HYDROmorphone 1 MG/ML 1 ML SYRINGE IVP PRN (14:29)
[2024-08-20] MEDS ORDERED: SENNOSIDES-DOCUSATE SODIUM 1 EACH TAB PO PRN (14:29)
[2024-08-20] MEDS ORDERED: hydrOXYzine pamoate 25 MG CAP PO PRN (14:29)
--- NOTE | 2024-08-20 14:40 | P.OP ---
Date of Procedure: 08/20/24 Preoperative Diagnosis: Left severe glenohumeral joint osteoarthrosis Postoperative Diagnosis: Same Procedure(s) Performed: Left total shoulder arthroplasty Implants: DePuy Inhance size medium cemented peg glenoid component, size medium stemless implant, 42 mm x 14 mm 0.5 mm humeral head. Anesthesia: cb HENNESSY Surgeon: Dann De La Torre Bankruptcy Assistant #1: eDquan Clark Estimated Blood Loss (ml): 100 Pathology: none sent Condition: stable Disposition: PACU Indications for Procedure: The patient is a 63-year-old female who presents with progressive left shoulder pain secondary to osteoarthrosis despite conservative measures. She had undergone previous arthroscopy. A discussion of the risks and benefits of continued conservative measures versus operative intervention was made with the patient. She opted to proceed with surgery. Operative risks include infection, neurovascular injury, development of blood clots, fracture, possible component loosening/failure and possible need for subsequent procedures was discussed. In formed consent was obtained. Operative Findings: As below Description of Procedure: The patient was brought to the operating room, and after induction of general anesthesia was placed in the beachchair position. The bony prominences were appropriately padded. The right upper extremity was prepped and draped in normal fashion. A deltopectoral incision was then made lateral to the coracoid process extending approximately 12 cm. The skin was incised sharply. Subcutaneous tissues were divided bluntly. Electrocautery was used for hemostasis. The deltopectoral interval was identified and the cephalic vein gently retracted laterally with the deltoid. Subdeltoid adhesions were bluntly dissected. A self-retaining retractor was placed. The clavipectoral fascia was opened and the conjoined tendon gently retracted medially. The upper one third of the pectoralis major was released to help facilitate exposure. The biceps was identified and the sheath was opened. The rotator interval was opened. The biceps was tenotomized and allowed to retract distally. A subscapularis peel was performed. This was tagged with #2 Ethibond suture. The humeral head was then exposed releasing the capsule off the humeral neck. The shoulder was gently dislocated. The cutting block was pinned in place in line with the humeral shaft at 30 degrees of retroversion aligned with the rotator cuff insertion superiorly. The humeral head cut was then made. The metaphysis measured a medium. The alignment guide was pinned in place. The metaphysis was prepared with the appropriate reamer. The Blazer was then utilized. There was good bony support. A trial medium stemless implant was then placed. A posterior glenoid retractor was placed. The glenoid was then exposed releasing the labrum from the 6-12 o'clock position. Residual labral tissue was removed. The glenoid sized most appropriate a size medium. A guidewire was then inserted planning on the appropriate version. I had peripheral cortical bony support. The reamer was inserted to the appropriate depth. The trial size medium glenoid was placed and was fully seated. There was good peripheral cortical support. The trial component was removed. Pulsatile lavage was utilized. The bony surface was dried. The cement was placed into the peripheral ring. Excess cement was removed. A central peg glenoid was then placed and was fully seated. This was gently impacted. This was held in place until the cement had sufficiently hardened. The trial stemless implant was removed and a final 1 inserted in the same orientation. There was good peripheral support and stability. A 42 x 14.5 mm trial head was placed. The shoulder was gently reduced. It was taken through a range of motion. It was felt to be stable in flexion and extension with internal and external rotation. I felt there was adequate pentecostalism of soft tissue tension. The shoulder was gently d islocated. The trial head was removed and the final 1 inserted with the trunnion in the neutral position. A #2 Ethibond was placed laterally for reattachment of the subscapularis. Pulsatile lavage was utilized. The shoulder was reduced and taken through range of motion. Again there was good stability in all planes. The subscapularis was reattached with #2 Ethibond suture. The rotator interval was closed with #2 Ethibond suture. She had minimal drainage at this point therefore a deep drain was not placed. The deltopectoral interval was closed with interrupted 2-0 Vicryl sutures. The subcu tissues were reapproximated with interrupted 2-0 Vicryl sutures. The skin was reapproximated with 3-0 subcuticular Prolene suture. Steri-Strips were applied. A sterile dressing was applied in addition to a sling. The patient was then awoken from general anesthesia and transferred to recovery room in good condition. Blood loss was estimated at 100 mL. No complications were incurred. Sponge and needle counts were correct at the end the case. Dequan BAILON assisted during the major components of the case to include positioning, exposure, resection, implantation, and closure.
--- NOTE | 2024-08-20 15:08 | XR ---
EXAMINATION TYPE: XR shoulder limited LT DATE OF EXAM: 08/20/2024 COMPARISON: NONE CLINICAL INDICATION: Female, 63 years old with history of s/p left total shoulder arthroplasty; TECHNIQUE: One view submitted FINDINGS: Postsurgical change with soft tissue edema and air compatible with recent surgery. Alignmen t anatomic. IMPRESSION: Postoperative change. [facility] [place], , 08/20/2024 3:05 PM
[2024-08-20] MEDS: FAMOTIDINE 20 MG/2 ML VIAL IV STA (16:23)
[2024-08-20 18:05] LABS: Basophils % (A) 0 %; Eosinophils % (A) 0 %; HCT 20.1 % (34.0-46.0); Lymphocytes # (A) 0.3 k/uL (1.0-4.8); Lymphocytes % (A) 4 %; MCH 31.3 pg (25.0-35.0); MCHC 32.5 g/dL (31.0-37.0); MCV 96.5 fL (80.0-100.0); Mean Platelet Volume 9.4; Monocytes # (A) 0.2 k/uL (0-1.0); Monocytes % (A) 3 %; Neutrophils # (A) 6.8 k/uL (1.3-7.7); Neutrophils % (A) 93 %; Platelet Count 112 k/uL (150-450); RBC 2.08 m/uL (3.80-5.40); RDW 13.9 % (11.5-15.5); WBC 7.3 k/uL (3.8-10.6)
[2024-08-20 18:24] LABS: HGB 6.5 gm/dL (11.4-16.0)
[2024-08-20 19:11] LABS: HCT 43.8 % (34.0-46.0); HGB 14.1 gm/dL (11.4-16.0); MCH 30.5 pg (25.0-35.0); MCHC 32.2 g/dL (31.0-37.0); MCV 94.7 fL (80.0-100.0); Platelet Count 217 k/uL (150-450); RBC 4.63 m/uL (3.80-5.40); RDW 13.3 % (11.5-15.5); WBC 16.5 k/uL (3.8-10.6)
[2024-08-20] MEDS: ceFAZolin 3 GM in SODIUM CHLORIDE 0.9% 100 ML IVPB SCH (20:09)
[2024-08-20] MEDS ORDERED: ALBUTEROL NEBULIZED 2.5 MG/3 ML INHALATION PRN (20:34)
--- NOTE | 2024-08-20 20:34 | P.CONS ---
History of Present Illness - Reason for Consult Consult date: 08/20/24 - Chief Complaint Post-Op Medical Management - History of Present Illness Patient is a 65-year-old female with past medical history of asthma and hypertension who is status post left total shoulder arthroplasty with Dr. De La Torre. [facility] consulted for medical management. Patient denies any chest pain, shortness of breath, abdominal pain, nausea, vomiting, urinary or bowel complaints. Patient states pain is at a 0 out of 10 and is not having difficulty voiding. She denies passing flatus or having a BM at this time. Patient is also ambulating to the bathroom. Nurse reports that she felt a little bit lightheaded going to the bathroom, but the patient denies fall or loss of consciousness and vitals were checked and stable. Patient endorses a mild headache at this time. She denies any nausea, vomiting, fevers or chills, chest pain, shortness of breath, palpitations, dizziness. LABS: WBC 16.5, Hgb 14.1, platelets 217. Pertinent positives and negatives as discussed in HPI, a complete review of systems was performed and all other systems are negative. Patient seen and examined at bedside. Physical examination: Vital signs reviewed General: nontoxic, no distress, appears at stated age Derm: warm, dry, intact Head: atraumatic, normocephalic, symmetric Eyes: anicteric sclera Mouth: no lip lesion, mucus membranes moist Cardiovascular: S1 S2 reg, no murmur Lungs: CTA bilateral, no rhonchi, no rales, no accessory muscle use Abdominal: soft, non-tender to palpation, nondistended Extremities: No cyanosis, clubbing, or pedal edema. Neuro: Alert, Oriented to person, time and place, Gross neurological examination did not reveal any focal deficits. Cranial nerves II to XII grossly intact. Right upper extremity strength 5 out of 5 normal tone. Left upper extremity deferred. Bilateral lower extremity muscle strength intact and sensation intact. Psych: well appearing, appropriate affect Assessment/Plan: 65-year-old female with past medical history of asthma and hypertension who is status post left total shoulder arthroplasty with Dr. De La Torre. We have been asked to see the patient in consultation for medical management postoperatively. Active: Left shoulder osteoarthritis status post total shoulder arthroplasty Pain control and DVT prophylaxis per surgery team Postop hemoglobin 6.5, repeat was 14.1, possible lab error Repeat CBC in a.m. Chronic: Asthma Continue albuterol 2 puffs as needed Hypertension Continue lisinopril 5 mg daily CODE STATUS: Full code Patient has been medically optimized for discharge. Will continue to follow. Thank you for this consultation. I have seen and evaluated the patient today. I Discussed the case with the resident and agree with the resident's findings I edited the assessment and plan as necessary as documented in the resident's note. Past Medical History Past Medical History: Asthma, Eye Disorder, GERD/Reflux, Hypertension, Osteoarthritis (OA) Additional Past Medical History / Comment(s): glaucoma History of Any Multi-Drug Resistant Organisms: None Reported Past Surgical History: Cholecystectomy, Orthopedic Surgery, Tubal Ligation, Uterine Ablation Additional Past Surgical History / Comment(s): arthroscopic lt shoulder surgery, rt hand surgery x2 lt hand surgery x1, zandra carpal tunnel, arthroscopic rt knee x1, lt knee x2, laser surgery around eyes r/t glaucoma Past Anesthesia/Blood Transfusion Reactions: Family History of Problems w/ Anesthesia Additional Past Anesthesia/Blood Transfusion Reaction / Comm: PONV mother and brother Past Psychological History: No Psychological Hx Reported Smoking Status: Former smoker Past Alcohol Use History: Occasional Additional Past Alcohol Use History / Comment(s): smoked on and off 4-5 cigarettes/day quit 5 yrs. ago Past Drug Use History: None Reported - Past Family History Mother Family Medical History: No Reported History Father Family Medical History: Diabetes Mellitus Medications and Allergies Home Medications Medication Instructions Recorded Confirmed Type Albuterol Sulfate [Ventolin HFA] 2 puff INHALATION DIRECTED PRN 11/28/22 08/20/24 History lisinopriL [Zestril] 5 mg PO DAILY 02/09/24 08/20/24 History Allergies Allergy/AdvReac Type Severity Reaction Status Date / Time No Known Allergies Allergy Verified 08/20/24 11:15 Physical Exam Vitals: Vital Signs Temp Pulse Pulse Pulse Resp BP BP 08/20/24 17:53 97.9 F 97 16 127/84 08/20/24 17:00 88 16 124/58 08/20/24 16:30 105 H 17 125/61 08/20/24 16:15 83 15 123/58 08/20/24 15:59 61 14 115/58 08/20/24 15:44 98 16 117/59 08/20/24 15:29 81 18 119/58 08/20/24 15:14 68 16 105/55 08/20/24 14:59 70 16 116/58 08/20/24 14:44 76 14 111/62 08/20/24 14:29 97.4 F L 82 16 126/75 08/20/24 12:05 74 16 119/59 08/20/24 11:29 96.0 F L 81 20 115/71 Pulse Ox 08/20/24 17:53 97 08/20/24 17:00 96 08/20/24 16:30 95 08/20/24 16:15 91 L 08/20/24 15:59 91 L 08/20/24 15:44 92 L 08/20/24 15:29 93 L 08/20/24 15:14 96 08/20/24 14:59 97 08/20/24 14:44 95 08/20/24 14:29 100 08/20/24 12:05 97 08/20/24 11:29 96 Intake and Output 08/20/24 08/20/24 08/20/24 06:59 14:59 22:59 Intake Total 1001 1500 Output Total 100 Balance 901 1500 Intake: IV 1001 1500 Output: Estimated Blood Loss 100 Other: # Voids 1 Weight 128.8 kg 128.8 kg Results CBC & Chem 7: 08/20/24 18:46 Labs: Abnormal Lab Results - Last 24 Hours (Table) 08/20/24 08/20/24 Range/Units 17:32 18:46 WBC 16.5 H (3.8-10.6) k/uL RBC 2.08 L (3.80-5.40) m/uL Hgb 6.5 L* (11.4-16.0) gm/dL Hct 20.1 L (34.0-46.0) % Plt Count 112 L (150-450) k/uL Lymphocytes # 0.3 L (1.0-4.8) k/uL
[2024-08-20] MEDS: ACETAMINOPHEN TAB 325 MG TAB PO STA (21:02)
[2024-08-20] MEDS ORDERED: CALCIUM CARBONATE 500 MG CHEWABLE PO PRN (21:41)
[2024-08-20] MEDS ORDERED: MAG HYDROX/AL HYDROX/SIMETH 30 ML CUP PO PRN (21:41)
[2024-08-21] MEDS: HYDROcodone/APAP 5-325MG 1 EACH TAB PO PRN (02:01)
[2024-08-21] MEDS: ASPIRIN 325 MG TAB PO SCH (08:42)
[2024-08-21] MEDS: lisinopriL 5 MG TAB PO SCH (08:42)
[2024-08-21 08:57] LABS: Basophils # (A) 0.03 X 10*3/uL (0.00-0.10); Basophils % (A) 0.2 %; Eosinophils # (A) 0 X 10*3/uL (0.04-0.35); Eosinophils % (A) 0 %; HCT 39.6 % (37.2-46.3); HGB 12.7 g/dL (12.0-15.0); Lymphocytes # (A) 1.03 X 10*3/uL (0.90-5.00); Lymphocytes % (A) 6.8 %; MCH 29.9 pg (27.0-32.0); MCHC 32.1 g/dL (32.0-37.0); MCV 93.2 FL (80.0-97.0); Mean Platelet Volume 11.9 FL (9.5-12.2); Monocytes # (A) 0.94 X 10*3/uL (0.20-1.00); Monocytes % (A) 6.2 %; NRBC Per 100 WBC 0 X 10*3/uL (0.00-0.01); Neutrophils # (A) 13.14 X 10*3/uL (1.80-7.70); Neutrophils % (A) 86.4 %; Platelet Count 196 X 10*3/uL (140-440); RBC 4.25 X 10*6/uL (4.10-5.20); RDW 14.2 % (11.5-14.5)
[2024-08-21 09:06] LABS: Blood Urea Nitrogen 12.4 mg/dL (9.0-27.0); Calcium 8.7 mg/dL (8.7-10.3); Chloride 103 mmol/L (96-109); Glucose 153 mg/dL (70-110); Magnesium 1.9 mg/dL (1.5-2.4); Potassium 4.5 mmol/L (3.5-5.5); Sodium 136 mmol/L (135-145)
--- NOTE | 2024-08-21 09:34 | P.PN ---
Subjective Progress Note Date: 08/21/24 Patient is a 65-year-old female with past medical history of asthma and hypertension who is status post left total shoulder arthroplasty with Dr. De La Torre. [facility] physicians consulted for medical management. Patient denies any chest pain, shortness of breath, abdominal pain, nausea, vomiting, urinary or bowel complaints. Patient states pain is at a 0 out of 10 and is not having difficulty voiding. She denies passing flatus or having a BM at this time. Patient is also ambulating to the bathroom. Nurse reports that she felt a little bit lightheaded going to the bathroom, but the patient denies fall or loss of consciousness and vitals were checked and stable. Patient endorses a mild headache at this time. She denies any nausea, vomiting, fevers or chills, chest pain, shortness of breath, palpitations, dizziness. 08-21-24 Patient seen and examined at bedside. No events overnight. Patient with minimal pain. She is passing flatus and having bowel movements. Eating, and ambulating well. Patient is medically optimized for discharge. Pertinent positives and negatives as discussed in HPI, a complete review of systems was performed and all other systems are negative. Physical examination: Vital signs reviewed General: nontoxic, no distress, appears at stated age Derm: warm, dry, intact Head: atraumatic, normocephalic, symmetric Eyes: anicteric sclera Mouth: no lip lesion, mucus membranes moist Cardiovascular: S1 S2 reg, no murmur Lungs: CTA bilateral, no rhonchi, no rales, no accessory muscle use Abdominal: soft, non-tender to palpation, nondistended Extremities: No cyanosis, clubbing, or pedal edema. Neuro: Alert, Oriented to person, time and place, Gross neurological examination did not reveal any focal deficits. Cranial nerves II to XII grossly intact. Right upper extremity strength 5 out of 5 normal tone. Left upper extremity deferred. Bilateral lower extremity muscle strength intact and sensation intact. Psych: well appearing, appropriate affect Today's findings: Labs WBC 15.2, Hgb 12.7, glucose 153 Assessment/Plan: 65-year-old female with past medical history of asthma and hypertension who is status post left total shoulder arthroplasty with Dr. De La Torre. We have been asked to see the patient in consultation for medical management postoperatively. Active: Left shoulder osteoarthritis status post total shoulder arthroplasty Pain control and DVT prophylaxis per surgery team Leukocytosis, reactive, anticipated outcome of surgery Chronic: Asthma Continue albuterol 2 puffs as needed Hypertension Continue lisinopril 5 mg daily CODE STATUS: Full code Patient has been medically optimized for discharge. Will continue to follow. Thank you for this consultation. I have seen and evaluated the patient today. I Discussed the case with the resident and agree with the resident's findings I edited the assessment and plan as necessary as documented in the resident's note. Objective - Vital Signs Vital signs: Vital Signs Temp 98.3 F 08/21/24 00:23 Pulse 92 08/21/24 00:23 Resp 20 08/21/24 00:23 BP 123/67 08/21/24 00:23 Pulse Ox 99 08/21/24 00:23 FiO2 Intake & Output 08/20/24 08/21/24 08/21/24 18:59 06:59 18:59 Intake Total 2501 720 Output Total 100 Balance 2401 720 Weight 128.8 kg Intake: IV 2501 Oral 720 Output: Estimated Blood Loss 100 Other: Voiding Method Toilet # Voids 1 4 # Bowel Movements 1 - Labs CBC & Chem 7: 08/21/24 03:42 08/21/24 03:42 Labs: Abnormal Lab Results - Last 24 Hours (Table) 08/20/24 08/20/24 Range/Units 17:32 18:46 WBC 16.5 H (3.8-10.6) k/uL RBC 2.08 L (3.80-5.40) m/uL Hgb 6.5 L* (11.4-16.0) gm/dL Hct 20.1 L (34.0-46.0) % Plt Count 112 L (150-450) k/uL Lymphocytes # 0.3 L (1.0-4.8) k/uL
--- NOTE | 2024-08-21 11:44 | P.PN ---
Subjective Progress Note Date: 08/21/24 Principal diagnosis: Status post left total shoulder arthroplasty Patient evaluated at bedside, she is resting comfortably is also present. Patient's pain is well-controlled. She is actually been up and mobile throughout the room and hallway. She is urinating with no issues, she also had a bowel movement. She denies headaches, lightheadedness, chest pain or shortne ss of breath Objective - Vital Signs Vital signs: Vital Signs Temp 97.4 F L 08/21/24 06:52 Pulse 76 08/21/24 08:31 Resp 18 08/21/24 06:52 BP 123/78 08/21/24 06:52 Pulse Ox 96 08/21/24 06:52 FiO2 Intake & Output 08/20/24 08/21/24 08/21/24 18:59 06:59 18:59 Intake Total 2501 720 Output Total 100 1 Balance 2401 720 -1 Weight 128.8 kg Intake: IV 2501 Oral 720 Output: Urine 1 Estimated Blood Loss 100 Other: Voiding Method Toilet # Voids 1 4 # Bowel Movements 1 - Exam Left upper extremity: Incision is clean, dry, and intact. There is minimal soft tissue swelling and ecchymosis surrounding the medial and lateral aspects of the incision. Compartments to the upper arm are soft and compressible. Sensory exam to light touch is intact. Radial ulnar pulse are 2+ - Labs CBC & Chem 7: 08/21/24 03:42 08/21/24 03:42 Labs: Abnormal Lab Results - Last 24 Hours (Table) 08/20/24 08/20/24 08/21/24 Range/Units 17:32 18:46 03:42 WBC 16.5 H 15.20 H (3.8-10.6) k/uL RBC 2.08 L (3.80-5.40) m/uL Hgb 6.5 L* (11.4-16.0) gm/dL Hct 20.1 L (34.0-46.0) % Plt Count 112 L (150-450) k/uL Immature Gran # 0.06 H (0.00-0.04) X 10*3/uL Neutrophils # 13.14 H (1.80-7.70) X 10*3/uL Lymphocytes # 0.3 L (1.0-4.8) k/uL Eosinophils # 0 L (0.04-0.35) X 10*3/uL Carbon Dioxide (21.6-31.8) mmol/L Anion Gap (4.00-12.00) mmol/L Glucose (70-110) mg/dL 08/21/24 Range/Units 03:42 WBC (3.8-10.6) k/uL RBC (3.80-5.40) m/uL Hgb (11.4-16.0) gm/dL Hct (34.0-46.0) % Plt Count (150-450) k/uL Immature Gran # (0.00-0.04) X 10*3/uL Neutrophils # (1.80-7.70) X 10*3/uL Lymphocytes # (1.0-4.8) k/uL Eosinophils # (0.04-0.35) X 10*3/uL Carbon Dioxide 20.0 L (21.6-31.8) mmol/L Anion Gap 13.00 H (4.00-12.00) mmol/L Glucose 153 H (70-110) mg/dL Assessment and Plan Assessment: Postoperative day #1 status post left total shoulder arthroplasty Plan: Pain control, will discharge home on [place] 5 mg / 325 mg, also utilize stool so fteners DVT prophylaxis, aspirin 325 mg daily for 2 weeks Wound care instructions discussed, this to include icing and elevating, showering instructions and bandage use Discussed use of the arm sling, patient can take lots of breaks from the strap around her neck when stationary. Patient will be utilizing basic hand and wrist exercises, no active motion of the shoulder at this time Medical recommendations appreciated Discharge planning: Patient stable for discharge home today Time with Patient: Less than 30
--- NOTE | 2024-08-21 11:47 | P.DS ---
Providers Date of admission: 08/20/2024 Expected date of discharge: 08/21/24 Attending physician: Dann De La Torre Consults: 08/20/24 14:29 Consult Physician Routine Consulting Provider: Varghese Bauer Consult Reason/Comments: medical management s./p left total shoulder arthroplasty Do you want consulting provider notified?: Yes Primary care physician: [place] MD Hospital Course: Date of admission: 08/20/2024 Date of discharge: 08/21/2024 Admission diagnosis: Status post left total shoulder arthroplasty Discharge diagnosis: Same Attending physician: Dr. De La Torre Surgical procedures: Left total shoulder arthroplasty Brief history: Patient is a 63-year-old female with a history of progressive primary left shoulder osteoarthritis. At this point patient has failed cons ervative treatment measures and has opted to proceed with a elective left total shoulder arthroplasty. Hospital course: Details of patient's surgery can be found in operative report. Patient tolerated the procedure well and was subsequently transported to orthopedic floor. Patient's orthopeidc and medical care was provided daily. Patient had daily laboratory tests performed for evaluation of overall blood counts. Patient had daily physical therapy to include strengthening range of motion as well as education with walker ambulation. Patient was treated with aspirin for their postoperative DVT prophylaxis during their inpatient stay. Patient was noted to have a relatively uneventful postoperative course. Patient reported satisfactory pain control with oral pain medications by postoperative day 0. Patient showed satisfactory progress with physical therapy. Patient moved steadily through the program and had no difficulty meeting the goals by postoperative day 1. Given patient's otherwise satisfactory course and having met physical therapy goals, plan is to discharge patient home on postoperative day 1. Discharge condition/disposition: Patient will be discharged home in stable condition. Discharge medications: Instructions are given on resumption of patient's normal daily medications per primary care recommendation, in addition patient will be prescribed Blanket 5 mg / 325 mg, aspirin 325 mg, senna S. Discharge instructions: 1. Wound care and infection precautions, keep incision dry and covered while showering, no lotions, creams, moisturizers. No soaking, tubs, pools, hottubs. Do not scrub over the incision. 2. Utilize arm sling, okay to take breaks from arm with utilizing a pillow underneath 3. Ice and elevate when necessary. Do not exceed 20 minutes per hour with ice pack. 7. Pain meds and anticoagulants per prescription. 8. Pain medication has potential to cause constipation. Increase oral fluid and fiber intake. Contact primary care provider if you have not had a bowel movement within 48 hours after discharge 9. No anti-inflammatory medication until discussed at first post operative visit, this including Motrin, Aleve, Mobic, Diclofenac. 10. Follow up in office at 2 weeks postop with Felipe Cespedes PA-C/Dequan Agustin 11. Follow up with your primary care doctor 7-10 days after discharge. 12. Contact [facility] with any questions, . Procedures: Left total shoulder arthroplasty Patient Condition at Discharge: Good Plan - Discharge Summary Discharge Rx Participant: Yes New Discharge Prescriptions: New HYDROcodone/APAP 5-325MG [Blanket 5-325] 1 tab PO Q6HR PRN #28 tab PRN Reason: Pain Aspirin 325 mg PO DAILY #30 tab Sennosides/Docusate Sodium [Senna-S 8.6-50 mg Tablet] 2 each PO DAILY PRN #30 tablet PRN Reason: Constipation Continue lisinopriL [Zestril] 5 mg PO DAILY Albuterol Sulfate [Ventolin HFA] 2 puff INHALATION DIRECTED PRN PRN Reason: Wheezing Discharge Medication List Albuterol Sulfate [Ventolin HFA] 2 puff INHALATION DIRECTED PRN 11/28/22 [History] lisinopriL [Zestril] 5 mg PO DAILY 02/09/24 [History] Aspirin 325 mg PO DAILY #30 tab 08/21/24 [Rx] HYDROcodone/APAP 5-325MG [Blanket 5-325] 1 tab PO Q6HR PRN #28 tab 08/21/24 [Rx] Sennosides/Docusate Sodium [Senna-S 8.6-50 mg Tablet] 2 each PO DAILY PRN #30 tablet 08/21/24 [Rx] Follow up Appointment(s)/Referral(s): Dequan Clark, ALFREDO [PHYSICIAN WATER FITNESS INSTRUCTOR] - 09/04/24 9:30 am Patient Instructions/Handouts: Shoulder Arthroplasty (GEN) Activity/Diet/Wound Care/Special Instructions: Orthopedic Discharge Instructions: 1. Wound care and infection precautions, keep incision dry and covered while showering, no lotions, creams, moisturizers. No soaking, pools, hot tubs. Do not scrub over incision. 2. Nonweightbearing left upper extremity until follow-up. 3. Ice when necessary. Do not exceed 20 minutes per hour with ice pack. 4. Utilize sling to left upper extremity until seen at first follow up appointment. 5. Pain meds and anticoagulants per prescription. 6. Pain medication has potential to cause constipation. Increase oral fluid and fiber intake. Contact primary care provider if you have not had a bowel movement within 48 hours after discharge. 7. No anti-inflammatory medication until discussed at first post operative visit, this including Motrin, Aleve, Mobic, Diclofenac. 8. Follow up in office at 2 weeks postop with Felipe Cespedes PA-C / Dequan Clark PA-C 9. Follow up with your primary care doctor 7-10 days after discharge. 10. Contact [facility] with any questions, . Keep incision clean, dry contact. While showering, cover steri-strips with Saran wrap. Keep steri-strips on until follow-up appointment in office in 2 w eeks Discharge Disposition: HOME WITH HOME HEALTH SERVICES
[2024-08-21] MEDS: HYDROcodone/APAP 7.5-325MG 1 EACH TAB PO PRN (12:06)
[2024-08-21 12:52] VITALS: BP 125/82; PULSE 80; RESP 20; TEMP 98.3
== END 2024-08-21 13:10 | disposition home health service (06) ==
LOC: OR 10:40 → 4SSUR 14:24 → OR 08-21 13:10
PROVIDERS: ATTEND Orthopaedic Surgery
DX: M19.012 Primary osteoarthritis, left shoulder (principal); G89.18 Other acute postprocedural pain; J45.909 Unspecified asthma, uncomplicated; I10 Essential (primary) hypertension; Z87.891 Personal history of nicotine dependence; E66.9 Obesity, unspecified; Z79.82 Long term (current) use of aspirin; Z79.51 Long term (current) use of inhaled steroids
CPT/HCPCS: 23472; 64415; 80048; 83735; 85025 ×2; 85027; 73020; C1713; C1776; J2250; J0330; J1100; J2710; J0690 ×3; J2405; J2003; J3010; J3490; J2795; J2704; J2371; J1596